=== PATIENT | female | born 1955 | race Caucasian/White ===

== ENCOUNTER 2018-01-07 20:29 | Emergency (ER) | payer OTHER ==
[~2018-01-07] VITALS: Ht 157.5 cm; Wt 77.6 kg
[~2018-01-07 20:29] MED LIST: ALDACTONE50 MG PO; ASPIRIN325; BACTRIM DS TAB1 EACH PO; CELEXA20 MG PO; FISH OIL 1,001000 M2 PO; FISHOIL; KLOR-CON 1010 MEQ; LEVOTHYROXINE0.05 MG PO; LIPITOR10 MG PO; LISINOPRIL5 MG PO; METFORMIN HCL500 MG PO; NORCO 5-325 TA1 EAC1 PO; PRILOSEC OTC20 MG PO; VICODIN; VICODIN 5-3001 EACH PO; VITAMIN D3400 UNIT PO; ZANTAC 150MG T150 MG
[2018-01-07] MEDS ORDERED: LOPRESSOR50 (20:38)
[2018-01-07 20:39] VITALS: BP 146/62
== END 2018-01-07 21:01 | disposition home or self-care (01) ==
LOC: M.ERS 20:29
DX: S40.861A Insect bite (nonvenomous) of right upper arm, initial encounter (principal); E03.9 Hypothyroidism, unspecified; E78.00 Pure hypercholesterolemia, unspecified; K21.9 Gastro-esophageal reflux disease without esophagitis; I10 Essential (primary) hypertension; E11.9 Type 2 diabetes mellitus without complications; Z88.0 Allergy status to penicillin; Z88.7 Allergy status to serum and vaccine; Z88.8 Allergy status to other drugs, medicaments and biological substances; W57.XXXA Bitten or stung by nonvenomous insect and other nonvenomous arthropods, initial encounter; Y93.89 Activity, other specified; Y92.89 Other specified places as the place of occurrence of the external cause; Y99.8 Other external cause status

== ENCOUNTER 2018-09-24 15:16 | Inpatient (IN) | payer MEDICARE, OTHER ==
[~2018-09-24] VITALS: Ht 157.5 cm; Wt 79.8 kg
[~2018-09-24 15:16] MED LIST changes: -LEVOTHYROXINE0.05 MG PO; +LIPITOR 20 MG T20 M1 PO; -LIPITOR10 MG PO; +LOPRESSOR50 PO; +SYNTHROID100 MC1 PO; -ZANTAC 150MG T150 MG; +ZANTAC 150MG T150 MG PO
[2018-09-24 15:17] VITALS: BP 141/64
[2018-09-24 15:47] LABS: ABSOLUTE EOSINOPHILS 0.1 thou/uL (0.0-0.7); ABSOLUTE LYMPHOCYTES 1.7 thou/uL (0.8-5.3); ABSOLUTE MONOCYTES 0.4 thou/uL (0.0-1.2); ABSOLUTE NEUTROPHILS 3.8 thou/uL (1.6-8.1); BASOPHILS 0.5 %; EOSINOPHILS 1.9 %; HEMATOCRIT 33.5 % (37.0-47.0); HEMOGLOBIN 11.3 gm/dL (12.0-15.0); LYMPHOCYTES 27.9 %; MCHC 33.7 g/dL (28.0-37.0); MCV 77.1 fL (80.0-100.0); MONOCYTES 7.1 %; MPV 7.3 fl. (7.2-11.1); NUCLEATED RBCS 0 /100WBC; PLATELET COUNT* 271 thou/uL (150-400); POLYS 62.6 %; RBC 4.34 mil/uL (4.20-5.00); RDW-CV 14.5 % (10.5-14.5); WBC 6.1 thou/uL (4.0-11.0)
[2018-09-24 15:56] LABS: PROTIME 10.3 Seconds (9.20-11.50)
[2018-09-24 16:09] LABS: ANION GAP 6 mmol/L (7-16); BUN 14 mg/dL (7-18); CALCIUM 8.6 mg/dL (8.5-10.1); CHLORIDE 98 mmol/L (98-107); CO2 31 mmol/L (21-32); CREATININE 1.1 mg/dL (0.6-1.3); GLUCOSE 219 mg/dL (70-99); POTASSIUM 3.2 mmol/L (3.5-5.1); SODIUM 135 mmol/L (136-145); TROPONIN-I LEVEL <0.06 ng/mL (<0.06)
--- NOTE | 2018-09-24 16:18 | NUR ---
TO RE-EVALUATE
[2018-09-24 16:20] LABS: ALBUMIN 2.9 g/dL (3.4-5.0); ALKALINE PHOSPHATASE 73 U/L (46-116); LIPASE 209 U/L (73-393); NT-PRO BRAIN NAT PEPTIDE 78 pg/mL (<300); SGOT 17 U/L (15-37); SGPT 14 U/L (30-65); TOTAL BILIRUBIN 0.1 mg/dL (<0.1-1.0); TOTAL PROTEIN 6.6 g/dL (6.4-8.2)
[2018-09-24 18:04] VITALS: BP 113/46
[2018-09-24 18:25] VITALS: BP 123/61
--- NOTE | 2018-09-24 18:45 | NUR ---
PATIENT ARRIVED TO UNIT AT APPROX 1830. ALERT AND ORIENTED X4. VSS ON ROOM AIR. NO COMPLAINTS OF PAIN, SOA, OR NASUEA. PATIENTS DAUGHTER IS WITH HER AND CAUSING PATIENT SOME ANXIETY, PATIENT CRYIINIG AFTER SPEAKING TO HER DAUGHTER. PATIENT EDUCATED ON RISKS FOR FALLS AND PREVENTIONS AND COPMMUNICATES UNDERSTANDING OF NEED TO CALL STAFF BEFORE GETTING UP. FALL AGREEMENT SIGNED. FALL PRECAUTIONS PLACED. CALL LIGHT WITHIN REACH. NURSING WILL CONTINUE TO MONITOR.
[2018-09-24 20:00] VITALS: BP 132/62
[2018-09-25] VITALS (18 sets, daily range): BP systolic 104–142; BP diastolic 51–90
[2018-09-25 04:50] LABS: POTASSIUM 3.6 mmol/L (3.5-5.1)
[2018-09-25 04:55] LABS: ABSOLUTE EOSINOPHILS 0.2 thou/uL (0.0-0.7); ABSOLUTE LYMPHOCYTES 1.8 thou/uL (0.8-5.3); ABSOLUTE MONOCYTES 0.4 thou/uL (0.0-1.2); BASOPHILS 0.4 %; EOSINOPHILS 3.7 %; HEMATOCRIT 36.9 % (37.0-47.0); HEMOGLOBIN 12.2 gm/dL (12.0-15.0); LYMPHOCYTES 33.6 %; MCH 25.5 pg (26.0-34.0); MCHC 33.1 g/dL (28.0-37.0); MCV 76.9 fL (80.0-100.0); MONOCYTES 7.3 %; MPV 7.6 fl. (7.2-11.1); NUCLEATED RBCS 0 /100WBC; PLATELET COUNT* 281 thou/uL (150-400); RDW-CV 14.6 % (10.5-14.5); WBC 5.4 thou/uL (4.0-11.0)
--- NOTE | 2018-09-25 05:56 | NUR ---
ASSUMED PT CARE AT APPROX 1920. PT AWAKE AND ALERT X4. APPEARED ANXIOUS AND IS TEARFUL. PT WAS ABLE TO CALM DOWN AND SLEEP WITH XANAX GIVEN PER MAR. ASSESSMENT DONE AND CHARTED. CALL LIGHT WITHIN REACH. HOURLY ROUNDING DONE FOR PT SAFETY.
[2018-09-25 07:50] LABS: CHOLESTEROL 157 mg/dL (<200); HDL CHOLESTEROL 37 mg/dL (>40); LDL CHOLESTEROL 100 mg/dL (<100); TC:HDL 4.2 Ratio (Not establshd); TRIGLYCERIDE 104 mg/dL (<150); VLDL 21 mg/dL (<40)
[2018-09-25 07:51] LABS: SERUM ASSESSMENT Clear
--- NOTE | 2018-09-25 08:30 | NUR ---
RECEIVED REPORT FROM ROLLOUT MANAGER NURSE AND ASSUMED CARE OF PT AT 0745.PT IS A/OX4 .VSS.TRACING SR ON MONITOR.NO COMPLAINTS OF PAIN AT TIME OF ASSESSMENT .NO SKIN ISSUE.PT IS NPO STATUS FOR CARDIOLOGY.SAFETY PRECAUTIONS AND CALL LIGHT IN PLACE.IV PATENT AT R FOREARM WITH IV FLUIDS INFUSING.WILL CONTINUE TO MONITOR
--- NOTE | 2018-09-25 11:37 | NUR ---
MET WITH PT TO DISCUSS HOME SITUATION/DC PLANNING. PT LIVE WITH SPOUSE, DTR, HER BF AND 2 GRANDSONS WELL CATS. PT STATES 'TOO MANY PEOPLE' PT ADMITTED WITH CHEST PAIN, TO HAVE TESTS TODAY. PT DENIES ANY DC NEEDS. PLANS TO RETURN HOME AT DC. PT FOLLOWS WITH DR DUC WHITE FOR PCP. WILL FOLLOW
--- NOTE | 2018-09-25 15:55 | EKG ---
[place] [address] ELECTROCARDIOGRAM REPORT Name: BALWINDER JO Room: [place] [address] ADM IN .R.#: [id number] Admission: 09/24/18 Attend Phys: Ken Quiroga MD Discharge: Date of : 51 Report #: [id number] THIS REPORT FOR: //name// [facility] ED Test Date: 2018-09-24 Test Time: 15:19:20 Pat Name: BALWINDER JO Department: Room: [facility] Gender: F College [employer] Coordinator: KIM : 1955 Requested By: Humberto Hayward Order Number: [id number] MD: Dmitry Larry Measurements Intervals [place] Rate: 83 P: 54 MS: 148 QRS: 36 QRSD: 108 T: 61 QT: 412 QTc: 485 Interpretive Statements Sinus arrhythmia Ventricular premature complex RSR' in V1 or V2, right VCD Compared to ECG 04/21/2016 16:03:19 Ventricular premature complex(es) now present Electronically Signed On 09-25-2018 15:55:35 PHYSICAL GEOGRAPHER by Dmitry Larry [email or web address] <ELECTRONICALLY SIGNED> By: Dmitry Larry MD, [facility] 09/25/18 1555 1519 1519 Dmitry Larry MD, [facility] /EPI
--- NOTE | 2018-09-25 16:11 | EKG ---
[place] [address] ELECTROCARDIOGRAM REPORT Name: BALWINDER JO Room: [place] [address] ADM IN M.R.#: [id number] Admission: 09/24/18 Attend Phys: Ken Quiroga MD Discharge: Date of : 51 Report #: [id number] THIS REPORT FOR: //name// [facility] Test Date: 2018-09-25 Test Time: 12:15:11 Pat Name: BALWINDER JO Department: Room: [place] [address] Gender: F Chaser Helper: MERRY : 1955 Requested By: Dmitry Larry Order Number: [id number] Maik MD: Dmitry Larry Measurements Intervals [place] Rate: 52 P: 54 AR: 186 QRS: 20 QRSD: 111 T: 54 QT: 527 QTc: 491 Interpretive Statements Sinus rhythm Borderline prolonged QT interval Compared to ECG 04/21/2016 16:03:19 Incomplete right bundle-branch block no longer present Electronically Signed On 09-25-2018 16:11:31 THORACIC SURGEON by Dmitry Larry [email or web address] <ELECTRONICALLY SIGNED> By: Dmitry Larry MD, [facility] 09/25/18 9591 1215 1215 Dmitry Larry MD, [facility] /EPI
--- NOTE | 2018-09-25 16:30 | CARD ---
[address] [address] CARDIAC CATH REPORT Name: SANDROBALWINDER Denice Room: [place] [address] ADM IN .R.#: [id number] Admission: 09/24/18 Attend Phys: Ken Quiroga MD Discharge: Date of : 51 Report #: [id number] THIS REPORT FOR: //name// APPROVED REPORT Study performed: 09/25/2018 10:05:05 Patient Details Patient Status: In-Patient Room #: Event Personnel Dr. Larry Procedures Performed Left heart catheterization left ventriculography selective coronary artery and percutaneous coronary intervention to the obtuse marginal branch of the circumflex Indication Unstable angina Risk Factors Hypercholesterolemia, Diabetes Previous Procedures/Diagnoses Previous PCI Admission/Lab Medications/Medications given during procedure Aspirin, Platelet Aff. Inhib., Angiomax bolus and infusion Procedure Narrative The patient was brought electively to the Cardiac Catheterization Laboratory and was prepped and draped in a sterile manner. The right femoral was infiltrated with 2% Lidocaine subcutaneous anesthesia. A 6 [place] sheath was inserted into the right femoral artery. Coronary angiography was performed using coronary diagnostic catheters. The right coronary system was accessed and visualized with a Diagnostic catheter. The left coronary system was accessed and visualized with a Diagnostic catheter. The left ventricle was accessed and visualized with a Diagnostic catheter. Left ventricular/Aortic Valve gradient assessed via catheter pullback. Left ventriculogram was performed in ALFARO projection. Pre-demployment femoral angiogram was performed . Closure device was deployed with a 6 Fr Angioseal. [place] [address] CARDIAC CATH REPORT Name: BALWINDER JO Room: [address] IN [facility].#: [id number] Admission: 09/24/18 Attend Phys: Ken Quiroga MD Discharge: Date of : 51 Report #: [id number] Coronary Angiography The patient's coronary anatomy is right dominant. Diagnostic Cath Left Main 0% narrowing LAD 30% mid LAD narrowing Circumflex 80% stenosis of the first marginal branch of the circumflex after a previously deployed stent with 30% mid circumflex narrowing Right Coronary 30 Percent mid vessel narrowing Left Ventriculography The left ventricle is normal in size with contractility. The left ventricular ejection fraction is estimated to be 60%. Left ventricular wall motion abnormalities are present. There is no mitral insufficiency. Mid inferior hypokinesis is noted Hemodynamics The aortic pressure is 120/70 mmHg with a mean of 82 mmHg. The left ventricular end diastolic pressure is 8 mmHg. There was no gradient across the aortic valve upon pullback. PCI Technique Lesion Anticoagulation was achieved with Angiomax. Percutaneous coronary intervention was performed on the first marginal branch of the circumflex. The lesion stenosis prior to intervention was 80% with JAMEEL 3 flow. STENT DEPLOYMENT A drug-eluting stent 2.0 x 8 Haris was inserted and inflated up to 12atm for 10seconds. POST STENT DEPLOYMENT BALLOON DILATION A Balloon catheter 2.0 x 8 NC trek was inserted and inflated up to 18atm for 10seconds. Final angiography reveals 0 % stenosis with JAMEEL 3 flow. Conclusion #1 significant coronary artery disease characterized by the following: A 30% mid LAD narrowing B 30% mid circumflex narrowing with 80% [place] [address] CARDIAC CATH REPORT Name: TANIKAMICHELLEBALWINDER M Room: [address] IN [facility]#: [id number] Admission: 09/24/18 Attend Phys: Ken Quiroga MD Discharge: Date of : 51 Report #: [id number] marginal branch of the circumflex after a previously deployed stent C dominant right coronary artery with 30% mid vessel narrowing #2 normal global left ventricular systolic function, estimate ejection fraction being 60% with mid inferior hypokinesis #3 normal left-sided hemodynamic study #4 successful percutaneous coronary intervention with deployment of a drug-eluting stent at the site of 80% first marginal stenosis with 0% residual narrowing and JAMEEL-3 flow to the distal vessel Recommendations Cardiac Risk Reduction Program Aggressive Medical Therapy Medications Administered Aspirin (any) Prasugrel Diagnostic Cath Approved by: Dmitry Larry MD Date/Time: 09/25/2018 16:29:01 <ELECTRONICALLY SIGNED> By: Dmitry Larry MD, [facility] [id number] 29Dmitry Larry MD, [facility] /INF
[2018-09-25 18:14] LABS: HEMATOCRIT 35.7 % (37.0-47.0); HEMOGLOBIN 11.8 gm/dL (12.0-15.0); MCH 25.5 pg (26.0-34.0); MCHC 33.1 g/dL (28.0-37.0); MCV 76.9 fL (80.0-100.0); MPV 7.5 fl. (7.2-11.1); RBC 4.64 mil/uL (4.20-5.00); RDW-CV 14.3 % (10.5-14.5); WBC 6.9 thou/uL (4.0-11.0)
--- NOTE | 2018-09-25 19:09 | NUR ---
VSS,TRACING SB TO SR ON THE MONITOR.PT IS A/OX4.RECEIVED PT FROM MINE TECHNICIAN AT 1200.POST CATH VITALS MONITORED AND RECORDED.RIGHT GROIN CATH SITE HAD SOME OOZING. CATH DRESSING CHANGED X2. PRESSURE HELD FOR 15 MINUTES.NO HEMATOMA OR FURTHER BLEEDING.PT IS ON CARB CONTROL DIET.METFORMIN HELD DUE TO CATH CONTRAST.NEW IV PLACED TO L FOREARM.MAG REPLACED. PT IS UP STAND BY ASSIST.CALL LIGHT AND FALL PRECAUTIONS IN PLACE.WILL CONTINUE TO MONITOR.
--- NOTE | 2018-09-25 19:27 | NUR ---
THIS NURSE REVIEWED ORIENTEE NURSE KONG'S NOTES AND CHARTING AND AGREES.
--- NOTE | 2018-09-25 23:16 | NUR ---
INITAL ASSEEMENT COMPLETED AT 1930. PT'S RIGHT GROIN SITE SOFT, NO BLEEDING OR HEMETOMA NOTED. SMALL AREA OF BRUISING AT SITE. DRWSSING CLEAN DRY AND INTACT. INSTRUCTED PT TO SPLINT RIGHT GROIN SITE BEFORE COUGHING OR BEARING DOWN FOR BOWEL MOVEMENT. PAGED DR BLAIR FOR PTS HOME MEDICATION. RECIEVED ORDER FOR TRAZEDONE 100 MG PO AT HS.CALL LIGHT IN REACH. PT USING APPROPRIATELY.
[2018-09-26] VITALS: BP 131/57
[2018-09-26 04:00] VITALS: BP 116/49
[2018-09-26 04:31] LABS: ABSOLUTE EOSINOPHILS 0.2 thou/uL (0.0-0.7); ABSOLUTE LYMPHOCYTES 1.6 thou/uL (0.8-5.3); ABSOLUTE MONOCYTES 0.4 thou/uL (0.0-1.2); ABSOLUTE NEUTROPHILS 4.8 thou/uL (1.6-8.1); BASOPHILS 0.3 %; HEMATOCRIT 34.3 % (37.0-47.0); HEMOGLOBIN 11.4 gm/dL (12.0-15.0); LYMPHOCYTES 23.4 %; MCH 25.6 pg (26.0-34.0); MCHC 33.4 g/dL (28.0-37.0); MCV 76.7 fL (80.0-100.0); MONOCYTES 5.7 %; MPV 7.6 fl. (7.2-11.1); NUCLEATED RBCS 0 /100WBC; PLATELET COUNT* 280 thou/uL (150-400); POLYS 67.6 %; RBC 4.47 mil/uL (4.20-5.00); RDW-CV 14.3 % (10.5-14.5)
[2018-09-26 04:46] LABS: ALBUMIN 2.6 g/dL (3.4-5.0); CALCIUM 7.9 mg/dL (8.5-10.1); POTASSIUM 3.9 mmol/L (3.5-5.1); TOTAL BILIRUBIN 0.2 mg/dL (<0.1-1.0); TOTAL PROTEIN 6.1 g/dL (6.4-8.2); TROPONIN-I LEVEL 0.48 ng/mL (<0.06)
[2018-09-26 08:00] VITALS: BP 135/56
--- NOTE | 2018-09-26 10:48 | NUR ---
5345 ASSUMED CARE OF PATIENT. PLEASE SEE DOCUMENTED ASSESSMENT. SEE GROIN SITE CHARTING. HEADACHE IS RESOLVED BUT PT C/O COUGH AND MOT FEELING GOOD. DOES NOT WANT TO EAT. AFFECT IS FLAT
[2018-09-26 11:37] VITALS: BP 138/54
--- NOTE | 2018-09-26 12:59 | EKG ---
[place] [address] ELECTROCARDIOGRAM REPORT Name: BALWINDER JO Room: [place] [address] ADM IN M.R.#: [id number] Admission: 09/24/18 Attend Phys: Ken Quiroga MD Discharge: Date of : 51 Report #: [id number] THIS REPORT FOR: //name// [facility] Test Date: 2018-09-26 Test Time: 08:22:08 Pat Name: BALWINDER JO Department: Room: [place] [address] Gender: F Bar Staff: : 1955 Requested By: Dmitry Larry Order Number: [id number] Maik MD: Dmitry Larry Measurements Intervals [place] Rate: 61 P: 58 ND: 178 QRS: 46 QRSD: 106 T: 62 QT: 474 QTc: 478 Interpretive Statements Sinus rhythm RSR' in V1 or V2, right VCD Electronically Signed On 09-26-2018 12:59:43 CONTACT CENTER MANAGER by Dmitry Larry [email or web address] <ELECTRONICALLY SIGNED> By: Dmitry Larry MD, [facility] 09/26/18 1259 0822 1 Dmitry Larry MD, FACC /EPI
--- NOTE | 2018-09-26 13:16 | NUR ---
CARDIAC REHAB HERE TO WALK PATIENT
[2018-09-26 13:56] VITALS: BP 126/55
[2018-09-26] MEDS ORDERED: ASPIR 8181 MG PO (14:46)
[2018-09-26] MEDS ORDERED: EFFIENT10 MG PO (14:49)
[2018-09-26] MEDS ORDERED: NITROSTAT0.4 M1 SUBLING (14:54)
[2018-09-26] MEDS ORDERED: LOPRESSOR25 PO (15:00)
[2018-09-26] MEDS ORDERED: CELEXA40 MG PO (15:01)
[2018-09-26] MEDS ORDERED: ADVAIR HFA 230M12 GM INH (15:02)
[2018-09-26] MEDS ORDERED: PREDNISONE 20 M20 MG PO (15:18)
[2018-09-26] MEDS ORDERED: LEVAQUIN 750 M750 MG PO (15:18)
[2018-09-26] MEDS ORDERED: TRAZODONE HCL100 MG PO (15:28)
[2018-09-26] MEDS ORDERED: AZITHROMYCIN 2250 MG PO (15:28)
--- NOTE | 2018-09-26 15:44 | NUR ---
DISCHARGE EDUCATION DONE. IV AND TELE PACK REMOVED. PATIENT VOICES UNDERSTANDING OF INSTRUCTIONS
[2018-09-26 16:00] VITALS: BP 126/79
--- NOTE | 2018-09-26 16:16 | NUR ---
PATIENT DISCHARGED HOME
== END 2018-09-26 16:15 | disposition home or self-care (01) | DRG 247 ==
LOC: M.ERS 15:16 → M.TBA-ER 16:21 → M.2W 16:21
PROVIDERS: Emergency Medicine; Family Medicine; Internal Medicine; Registered Nurse; ADMIT Internal Medicine
PROC: 4A023N7 Measurement of Cardiac Sampling and Pressure, Left Heart, Percutaneous Approach (ICD-10-PCS; principal; 2018-09-25)
PROC: B2151ZZ Fluoroscopy of Left Heart using Low Osmolar Contrast (ICD-10-PCS; principal; 2018-09-25)
PROC: 027034Z Dilation of Coronary Artery, One Artery with Drug-eluting Intraluminal Device, Percutaneous Approach (ICD-10-PCS; principal; 2018-09-25)
PROC: B2111ZZ Fluoroscopy of Multiple Coronary Arteries using Low Osmolar Contrast (ICD-10-PCS; principal; 2018-09-25)
PROC: B41J1ZZ Fluoroscopy of Other Lower Arteries using Low Osmolar Contrast (ICD-10-PCS; principal; 2018-09-25)
DX: I25.119 Atherosclerotic heart disease of native coronary artery with unspecified angina pectoris (principal); J44.1 Chronic obstructive pulmonary disease with (acute) exacerbation; E44.1 Mild protein-calorie malnutrition; E03.9 Hypothyroidism, unspecified; E78.00 Pure hypercholesterolemia, unspecified; K21.9 Gastro-esophageal reflux disease without esophagitis; I10 Essential (primary) hypertension; E11.9 Type 2 diabetes mellitus without complications; F41.9 Anxiety disorder, unspecified; E87.6 Hypokalemia; E78.5 Hyperlipidemia, unspecified; F32.9 Major depressive disorder, single episode, unspecified; Z79.82 Long term (current) use of aspirin; Z95.5 Presence of coronary angioplasty implant and graft; Z88.0 Allergy status to penicillin; Z88.7 Allergy status to serum and vaccine; Z88.8 Allergy status to other drugs, medicaments and biological substances; Z79.899 Other long term (current) drug therapy; Z68.32 Body mass index [BMI] 32.0-32.9, adult

== ENCOUNTER 2018-09-27 11:36 | Emergency (ER) | payer MEDICARE, OTHER ==
[~2018-09-27] VITALS: Ht 157.5 cm; Wt 90.7 kg
[~2018-09-27 11:36] MED LIST changes: +ADVAIR HFA 230M12 GM INH; +ASPIR 8181 MG PO; +AZITHROMYCIN 2250 MG PO; +CELEXA40 MG PO; +EFFIENT10 MG PO; +LEVAQUIN 750 M750 MG PO; +LEVOTHYROXINE0.05 MG PO; +LOPRESSOR25 PO; +NITROSTAT0.4 M1 SUBLING; +PREDNISONE 20 M20 MG PO; -SYNTHROID100 MC1 PO; +TRAZODONE HCL100 MG PO
[2018-09-27 12:47] VITALS: BP 185/93
== END 2018-09-27 12:47 | disposition home or self-care (01) ==
LOC: M.ERS 11:36
DX: I97.610 Postprocedural hemorrhage of a circulatory system organ or structure following a cardiac catheterization (principal); E03.9 Hypothyroidism, unspecified; E78.00 Pure hypercholesterolemia, unspecified; K21.9 Gastro-esophageal reflux disease without esophagitis; I10 Essential (primary) hypertension; E11.9 Type 2 diabetes mellitus without complications; Z98.890 Other specified postprocedural states; Z95.5 Presence of coronary angioplasty implant and graft; Z88.1 Allergy status to other antibiotic agents; Z88.0 Allergy status to penicillin; Z88.7 Allergy status to serum and vaccine; Z88.8 Allergy status to other drugs, medicaments and biological substances; Y84.8 Other medical procedures as the cause of abnormal reaction of the patient, or of later complication, without mention of misadventure at the time of the procedure; Y82.8 Other medical devices associated with adverse incidents

== ENCOUNTER 2018-10-14 23:19 | Observation (INO) | payer MEDICARE, OTHER ==
[~2018-10-14] VITALS: Ht 157.5 cm; Wt 78.0 kg
[~2018-10-14 23:19] MED LIST changes: -LEVOTHYROXINE0.05 MG PO; +SYNTHROID100 MC1 PO
[2018-10-14 23:31] VITALS: BP 165/54
[2018-10-14] MEDS ORDERED: MOBIC15 MG (23:42)
[2018-10-14 23:56] LABS: ABSOLUTE EOSINOPHILS 0.3 thou/uL (0.0-0.7); ABSOLUTE LYMPHOCYTES 1.7 thou/uL (0.8-5.3); ABSOLUTE MONOCYTES 0.4 thou/uL (0.0-1.2); ABSOLUTE NEUTROPHILS 2.6 thou/uL (1.6-8.1); BASOPHILS 0.7 %; EOSINOPHILS 5.5 %; HEMATOCRIT 33.4 % (37.0-47.0); HEMOGLOBIN 11.3 gm/dL (12.0-15.0); LYMPHOCYTES 33.7 %; MCH 26.6 pg (26.0-34.0); MCHC 33.7 g/dL (28.0-37.0); MCV 78.9 fL (80.0-100.0); MONOCYTES 8.8 %; MPV 7.8 fl. (7.2-11.1); NUCLEATED RBCS 0 /100WBC; PLATELET COUNT* 226 thou/uL (150-400); POLYS 51.3 %; RBC 4.24 mil/uL (4.20-5.00); RDW-CV 16.2 % (10.5-14.5); WBC 5.1 thou/uL (4.0-11.0)
[2018-10-15] VITALS (7 sets, daily range): BP systolic 86–146; BP diastolic 39–73
[2018-10-15 00:12] LABS: ANION GAP 10 mmol/L (7-16); BUN 16 mg/dL (7-18); CALCIUM 8.9 mg/dL (8.5-10.1); CHLORIDE 102 mmol/L (98-107); CO2 30 mmol/L (21-32); CREATININE 1.1 mg/dL (0.6-1.3); GLUCOSE 187 mg/dL (70-99); POTASSIUM 3.4 mmol/L (3.5-5.1); SODIUM 142 mmol/L (136-145); TROPONIN-I LEVEL <0.06 ng/mL (<0.06)
[2018-10-15 00:15] LABS: ALBUMIN 3.3 g/dL (3.4-5.0); ALKALINE PHOSPHATASE 68 U/L (46-116); CK-MB MASS 1.1 ng/mL (<0.5-3.6); LIPASE 249 U/L (73-393); MAGNESIUM 1.2 mg/dL (1.8-2.4); NT-PRO BRAIN NAT PEPTIDE 227 pg/mL (<300); SGOT 16 U/L (15-37); SGPT 18 U/L (30-65); TOTAL BILIRUBIN 0.3 mg/dL (<0.1-1.0); TOTAL PROTEIN 6.3 g/dL (6.4-8.2)
[2018-10-15 00:19] LABS: URINE BILIRUBIN NEGATIVE (Negative); URINE BLOOD NEGATIVE (Negative); URINE CLARITY CLEAR; URINE COLOR YELLOW; URINE GLUCOSE-RANDOM NEGATIVE (Negative); URINE KETONES NEGATIVE (Negative); URINE LEUKOCYTES-REFLEX NEGATIVE (Negative); URINE NITRITE-REFLEX NEGATIVE (Negative); URINE PROTEIN NEGATIVE (Negative); URINE SPECIFIC GRAVITY <= 1.005 (1.005-1.030); URINE UROBILINOGEN 0.2 E.U./dl (0.2-1.0)
[2018-10-15 00:21] LABS: APTT 25.9 Seconds (25.0-31.3); PROTIME 9.8 Seconds (9.20-11.50)
[2018-10-15 16:34] LABS: CALCIUM 8.4 mg/dL (8.5-10.1); CREATININE 1.3 mg/dL (0.6-1.3); MAGNESIUM 1.4 mg/dL (1.8-2.4); POTASSIUM 3.7 mmol/L (3.5-5.1)
--- NOTE | 2018-10-15 17:50 | EKG ---
[place] [address] ELECTROCARDIOGRAM REPORT Name: BALWINDER JO Room: [address] ADM IN M.R.#: [id number] Admission: 10/15/18 Attend Phys: Adam Hitchcock MD Discharge: Date of : 51 Report #: [id number] THIS REPORT FOR: //name// [facility] ED Test Date: 2018-10-14 Test Time: 23:55:52 Pat Name: BALWINDER JO Department: Room: [facility] Gender: F Director Digital Analytics: : 1955 Requested By: Simon Toribio Order Number: [id number] MD: Andrea Milian Measurements Intervals [place] Rate: 57 P: 62 TN: 174 QRS: 25 QRSD: 108 T: 66 QT: 502 QTc: 489 Interpretive Statements Sinus rhythm RSR' in V1 or V2, right VCD or RVH Borderline prolonged QT interval Compared to ECG 09/26/2018 08:22:08 no change Electronically Signed On 10-15-2018 17:49:44 CDT by Andrea Milian [email or web address] <ELECTRONICALLY SIGNED> By: Andrea Milian MD, FACC 10/15/18 1749 2355 2355 Andrea Milian MD, FAC /EPI
[2018-10-16] VITALS (7 sets, daily range): BP systolic 87–149; BP diastolic 40–70
[2018-10-16 04:37] LABS: ABSOLUTE BASOPHILS 0.1 thou/uL (0.0-0.2); ABSOLUTE EOSINOPHILS 0.2 thou/uL (0.0-0.7); ABSOLUTE LYMPHOCYTES 1.6 thou/uL (0.8-5.3); ABSOLUTE MONOCYTES 0.4 thou/uL (0.0-1.2); BASOPHILS 1.2 %; EOSINOPHILS 5.8 %; HEMATOCRIT 32.8 % (37.0-47.0); HEMOGLOBIN 11.1 gm/dL (12.0-15.0); LYMPHOCYTES 37.3 %; MCH 26.8 pg (26.0-34.0); MCHC 33.8 g/dL (28.0-37.0); MCV 79.4 fL (80.0-100.0); MONOCYTES 9.6 %; MPV 8.1 fl. (7.2-11.1); NUCLEATED RBCS 0 /100WBC; PLATELET COUNT* 183 thou/uL (150-400); POLYS 46.1 %; RBC 4.13 mil/uL (4.20-5.00); RDW-CV 16.1 % (10.5-14.5); WBC 4.3 thou/uL (4.0-11.0)
[2018-10-16 04:48] LABS: CALCIUM 7.9 mg/dL (8.5-10.1); CREATININE 1.2 mg/dL (0.6-1.3); POTASSIUM 4.5 mmol/L (3.5-5.1)
--- NOTE | 2018-10-17 07:49 | 2DMMODE ---
[place] [address] 2 D/M-MODE ECHOCARDIOGRAM Name: BALWINDER JO Room: [address] IN [facility]#: [id number] Admission: 10/15/18 Attend Phys: Adam Hitchcock MD Discharge: 10/16/18 Date of : 51 Date of Service: 10/17/18 0748 Report #: [id number] THIS REPORT FOR: //name// APPROVED REPORT Study performed: 10/16/2018 11:55:19 EXAM: Comprehensive 2D, Doppler, and color-flow Echocardiogram Patient Location: In-Patient Room #: [facility] Status: routine BSA: 1.79 HR: 54 bpm BP: 87/48 mmHg Rhythm: NSR Other Information Study Quality: Fair Indications Chest Pain 2D Dimensions IVSd: 9.10 (7-11mm) LVOT Diam: 18.83 (18-24mm) LVDd: 45.33 mm PWd: 9.56 (7-11mm) LVDs: 30.30 (25-40mm) Aortic Root: 28.54 mm Volumes Left Atrial Volume (Systole) LA ESV Index: 24.50 mL/m2 Aortic Valve AoV Peak Alec.: 1.53 m/s AO Peak Gr.: 9.41 mmHg LVOT Max P.71 mmHg AO Mean Gr.: 4.71 mmHg LVOT Mean P.98 mmHg LVOT Max V: 1.09 m/s AO V2 VTI: 32.74 cm LVOT Mean V: 0.63 m/s VALARIE (VTI): 2.18 cm2 LVOT V1 VTI: 25.63 cm Mitral Valve E/A Ratio: 1.27 MV Decel. Time: 236.20 ms MV E Max Alec.: 0.88 m/[place] [address] 2 D/M-MODE ECHOCARDIOGRAM Name: BALWINDER JO Room: [address]#: [id number] Admission: 10/15/18 Attend Phys: Adam Hitchcock MD Discharge: 10/16/18 Date of : 51 Date of Service: 10/17/18 0748 Report #: [id number] MV PHT: 68.50 ms MVA (PHT): 3.21 cm2 TDI E/Lateral E': 7.33 E/Medial E': 9.78 Medial E' Alec.: 0.09 m/s Lateral E' Alec.: 0.12 m/s Pulmonary Valve PV Peak Alec.: 0.82 m/s PV Peak Gr.: 2.68 mmHg Left Ventricle The left ventricle is normal size. There is normal LV segmental wall motion. There is normal left ventricular wall thickness. Left ventricular systolic function is normal. The left ventricular ejection fraction is within the normal range. LVEF is 55-60%. The left ventricular diastolic function is normal. Right Ventricle The right ventricle is normal size. The right ventricular systolic function is normal. Atria The left atrium size is normal. The right atrium size is normal. Aortic Valve The Aortic valve is sclerotic. No aortic regurgitation is present. There is no aortic valvular stenosis. Mitral Valve The mitral valve is normal in structure. Trace mitral regurgitation. No evidence of mitral valve stenosis. Tricuspid Valve The tricuspid valve is normal in structure. Trace tricuspid regurgitation. Unable to assess PA pressure. Pulmonic Valve The pulmonary valve is normal in structure. There is no pulmonic valvular regurgitation. Great Vessels The aortic root is normal in size. IVC is normal in size and collapses >50% [place] [address] 2 D/M-MODE ECHOCARDIOGRAM Name: BALWINDER JO Room: [address] IN [facility]#: [id number] Admission: 10/15/18 Attend Phys: Adam Hitchcock MD Discharge: 10/16/18 Date of : 51 Date of Service: 10/17/18 0748 Report #: [id number] Pericardium There is no pericardial effusion. <Conclusion> LVEF is 55-60%. The Aortic valve is sclerotic. <ELECTRONICALLY SIGNED> By: Andrea Milian MD, FAC 10/17/1848 Andrea Milian MD, [facility] /INF
--- NOTE | 2018-10-17 09:30 | CARDNUC ---
[place] [address] CARDIAC NUCLEAR IMAGING REPORT Name: BALWINDER JO Room: [address] IN [facility]#: [id number] Admission: 10/15/18 Attend Phys: Adam Hitchcock MD Discharge: 10/16/18 Date of : 51 Date of Service: 10/17/18 0929 Report #: [id number] THIS REPORT FOR: //name// APPROVED REPORT Imaging Protocol: Rest Tc-99m/Stress Tc-99m 1 day Study performed: 10/15/2018 18:02:00 Indication: Chest pain Patient Location: In-Patient Room #: 226 Stress Tech: Chloe Mae Stress Nurse: Lindy Burton RN Ht: 5 ft 2 in Wt: 172 lbs BSA: 1.79 m2 BMI: 31.45 Medical History Medical History: Angina, CAD s/p CO, CAD s/p stent, Hyperlipidemia, HTN, Former Smoker, Diabetes. Medications: Metformin, Lovenox, Lopressor, ASA 81 Mg, Atorvastatin, Effient, Hydralazine, NTG. Allergies: Cephalexin, Cephalosporins, Cortisone, Levofloxacin, Penicillins, Ranitidine, Tenanus toxoid, Tizanidine. Cardiac Risk Factors: Age, DM, HTN, Hyperlipidemia, Past Smoker. Previous Cardiac Procedures: Myocardial infarction, PCI. Pretest Chest Pain Characteristics: No chest pain Exercise History: Indeterminate Physical Disabilities: Knees, Back. Meds Held (24 hrs): Loparessor, NTG. Resting Data Rest SPECT myocardial perfusion imaging was performed in supine position 30 minutes following the intravenous injection of 10.4 mCi of Tc-99m Sestamibi. Time of rest injection: 11:40 The images were gated to evaluate regional wall motion and calculate left ventricular ejection fraction. Administration Route: IV Administration Site: Right Arm Pharmacologic Stress Pharmacologic stress test was performed by injecting Regadenoson 0.4 mg IV push over 10-15 seconds immediately [place] [address] CARDIAC NUCLEAR IMAGING REPORT Name: TANIKAMICHELLEBALWINDER Denice Room: [address]#: [id number] Admission: 10/15/18 Attend Phys: Adam Hitchcock MD Discharge: 10/16/18 Date of : 51 Date of Service: 10/17/18 0929 Report #: [id number] injection of 36.0 mCi of Tc-99m Sestamibi. Time of stress injection: 13:50 Administration Site: Right Arm Heart Rate at time of stress injection: 84 bpm. Gated Stress SPECT was performed 45 minutes after stress injection. The images were gated to evaluate regional wall motion and calculate left ventricular ejection fraction. Prone imaging was performed. Stress Test Details Stress Test: Pharmacologic stress testing performed using 0.4 mg of regadenoson per 5 mL given IV over 10 seconds. Reason for pharmacologic stress test: physical limitation, bad knees/back pain.. HR Max Heart Rate (APMHR): 155 bpm Resting HR: 58 bpm Target HR (85% APMHR): 131 bpm Max HR Achieved: 92 bpm % of APMHR: 59 Recovery HR: 81 bpm HR response to stress: Normal HR response to stress BP Resting BP: 120/61 mmHg Max BP: 133/71 mmHg Recovery BP: 131/67 mmHg BP response to stress: Normal blood pressure response to stress. ECG Resting ECG: Sinus Rhythm Stress ECG: Sinus Rhythm ST Change: none Arrhythmia: none Recovery ECG: Sinus Rhythm Clinical Reason for Termination: Completed protocol Stress Symptoms: Tightness in chest, Head foggy, Headache. Exercise duration: 0 min 0 sec Exercise capacity: 1.00 METs Nurse Comments 63 year old female inpatient presented with recent HX of CP. Patient reported pain in knees and back. Patient tolerated sitting Lexiscan. Recovery unremarkable with PO caffeine[place] [address] CARDIAC NUCLEAR IMAGING REPORT Name: BALWINDER JO Room: [address]#: [id number] Admission: 10/15/18 Attend Phys: Adam Hitchcock MD Discharge: 10/16/18 Date of : 51 Date of Service: 10/17/18 0929 Report #: [id number] wheelchair by staff to Nuclear Medicine for images. Patient stable with no complaints at that time. Stress ECG Conclusion negative Study Quality Study: Good Artifact: No artifact Study Data At rest, the left ventricular ejection fraction was 64%.. Post stress, the left ventricular ejection was 73%.. SSS: 0 SRS: 2 SDS: -2 Perfusion Review of rest data reveals normal perfusion, without perfusion defects.Imaging obtained following vasodilator stress demonstrate a similar, uniform uptake of tracer without defects. Prone imaging was normal. LVEDV is normal.No segental wall motion abnormality seen. Wall Motion normal all segments Nuclear Conclusion ECG Findings: negative for ischemia Clinical Findings: negative for ischemia Nuclear Findings: negative for ischemia Exercise Capacity: not assessed Left Ventricular Function: normal Risk Study: low Negative perfusion nuclear stress test for ischemia /infarct. <Conclusion> negative <ELECTRONICALLY SIGNED> By: Joby Santos MD, FACC 10/17/18928 8 8 Joby Santos MD, FACC /INF
--- NOTE | 2018-10-17 14:18 | CON ---
[address] [address] CONSULTATION Name: SANDROBALWINDER Denice Room: [address] Demar Lubin#: [id number] Admission: 10/15/18 Attend Phys: Adam Hitchcock MD Discharge: 10/16/18 Date of : 51 Report #: [id number] THIS REPORT FOR: //name// CC: Deena Hitchcock DATE OF SERVICE: 10/15/2018 HISTORY OF PRESENT ILLNESS: I was asked by Dr. Hitchcock to see this 63-year-old white female in cardiology consultation for evaluation and treatment of chest pain as well as right arm pain and neck pain. This lady has known coronary artery disease. She is status post a coronary stent in her circumflex in 2003. She had a recent coronary stent in the first marginal branch of the circumflex on 09/25/2018. At that time, she apparently had a non-STEMI. She began having right arm pain about 4 days ago and she came in finally last night when she had it associated with it some upper substernal chest pain that did radiate into her neck. The substernal chest pain was a little bit like her previous coronary pain, but not nearly as severe. The right arm pain is not like her coronary pain. It is sharp, stabbing, burning and radiates down her arm and occasionally up into the neck and is associated sometimes with moving her arm, but sometimes, it will happen even though she is just sitting. It does not necessarily happen if she exerts herself walking, but it can happen that way. Occasionally, she does not have pain when she walks. Occasionally, she has pain at rest, so it is not clearly exertional chest pain. She says the pain is fairly severe. Sometimes, it only lasts a few seconds. Sometimes, it lasts longer, but there is a constant numbness and discomfort in that right arm. This has been present for 4 days. Morphine makes it better and rest makes it better. It is really not worse with activity. Often, it is not better with rest even. Seems to be . Says she has some nausea. There is no shortness of breath. There is no diaphoresis and no relationship to food. Nitroglycerin does not help it. She does have chronic dyspnea on exertion, but not orthopnea, PND or edema. She has not had syncope or near syncope. Coronary risk factors include a history of smoking. She quit in 2001. She does have hypercholesterolemia and diabetes and high blood pressure. There is no family history of coronary heart disease. She has not had renal disease or peripheral vascular disease. She does have pain in her legs when she walks, but not clearly claudication. She never had a stroke or TIA. PAST MEDICAL HISTORY: As described above. Additionally, she has hypothyroidism and GERD. She also has asthma. PAST SURGICAL HISTORY: She has had a tubal ligation, a tonsillectomy and adenoidectomy and carpal tunnel surgery. ALLERGIES: PENICILLIN, CEPHALOSPORINS, CEPHALEXIN, TETANUS TOXOID, RANITIDINE, CORTISONE, TIZANIDINE AND LEVOFLOXACIN. [address] [place] [address] CONSULTATION Name: TANIKABASILIA MARTINEZBALWINDER Denice Room: [address] Demar Lubin#: [id number] Admission: 10/15/18 Attend Phys: Adam Hitchcock MD Discharge: 10/16/18 Date of : 51 Report #: [id number] HOME MEDICATIONS: Aspirin 81 mg daily, atorvastatin 20 mg daily, citalopram 40 mg daily, Advair HFA 2 puffs b.i.d., levothyroxine 0.5 mg daily, meloxicam 15 mg daily, metformin 500 mg b.i.d., metoprolol 25 mg b.i.d., p.r.n. nitroglycerin, omeprazole 40 mg daily, prasugrel 10 mg daily and trazodone 100 mg at bedtime. SOCIAL HISTORY: She is , does not smoke, drink or use illegal drugs. FAMILY HISTORY: There is no family history of sudden . There is no family history of coronary artery disease. REVIEW OF SYSTEMS: Positive for cough, green sputum production, chest discomfort, shortness of breath with exercise, diabetes, thyroid trouble, seasonal allergies, depression, anxiety and wearing dentures. Otherwise, review of systems is negative for some 40 different complaints in 14 different system categories including central nervous system, general, respiratory, cardiovascular, endocrine, gastrointestinal, genitourinary, hematologic, lymphatic, allergic, immunologic, psychiatric, musculoskeletal, skin, eyes, ears, nose, mouth, and throat. Please see review of system form for details and negatives in review of systems. PHYSICAL EXAMINATION: GENERAL: She presents as a well-developed, well-nourished, white female in no acute distress. VITAL SIGNS: Pulse was 50 and regular, blood pressure is 107/51, respirations are 20 and regular, temperature was 97.9. HEENT: Her head was atraumatic. Eyes clear. NECK: Supple. There is no jugular venous distention or hepatojugular reflux. Thyroid is not enlarged. There is no adenopathy. SKIN: Warm and dry. Mucous membranes are moist. LUNGS: Clear to auscultation and percussion. HEART: Revealed normal first and second heart sound. There is soft S4. There is no S3. There are no murmurs, rubs, thrills, heaves or gallops. PMI is nondisplaced. Rhythm is regular, rate is approximately 60. ABDOMEN: Soft, flat, nontender, no palpable masses and no organomegaly. EXTREMITIES: Reveal no cyanosis, clubbing or edema. NEUROLOGIC: The patient mentated normally, talked normally and moved all extremities normally. LABORATORY DATA: Her EKG shows mild sinus bradycardia with a heart rate of 57. There is an RSR prime in V1 and V2, possible incomplete right bundle branch block, otherwise is fairly unremarkable. Troponins are negative x 3. BNP was normal. Chest x-ray showed no acute cardiopulmonary disease. IMPRESSION: 1. Right arm pain that is likely musculoskeletal in some sense, [place] [address] CONSULTATION Name: BALWINDER JO Room: [address] Demar Lubin#: [id number] Admission: 10/15/18 Attend Phys: Adam Hitchcock MD Discharge: 10/16/18 Date of : 51 Report #: [id number] neurologic. 2. Chest pain and neck pain, which could have been cardiac. 3. Coronary artery disease. 4. Status post coronary stents x 2, one recently. 5. Hypothyroidism. 6. Asthma. 7. Epn-qsjortn-zlesfcfxx diabetes mellitus. 8. Chest pain. 9. Hyperlipidemia. 10. Essential hypertension. RECOMMENDATION: I think she should have a stress test and echo to be sure she does not have any underlying coronary artery disease and we will give her some Toradol to see if that helps her pain, I am a little suspicious she may be about to develop shingles. Thank you very much for asking me to see the patient. If there are any questions, please feel free to contact me. <ELECTRONICALLY SIGNED> By: Andrea Milian MD, FACC 10/17/18 1418 1454 06F. Rusty Sharp MD, FACC /nt
== END 2018-10-16 16:00 | disposition home or self-care (01) ==
LOC: M.ERS 23:19 → M.2W 10-15 00:34 → M.TBA-ER 10-15 00:34 → M.2W 10-15 01:18
PROVIDERS: Family Medicine; Internal Medicine; ADMIT Family Medicine
DX: I25.10 Atherosclerotic heart disease of native coronary artery without angina pectoris (principal); E11.9 Type 2 diabetes mellitus without complications; I10 Essential (primary) hypertension; E03.9 Hypothyroidism, unspecified; E78.00 Pure hypercholesterolemia, unspecified; K21.9 Gastro-esophageal reflux disease without esophagitis; Z88.0 Allergy status to penicillin; Z88.8 Allergy status to other drugs, medicaments and biological substances; Z90.89 Acquired absence of other organs; Z98.51 Tubal ligation status

== ENCOUNTER 2018-11-03 08:49 | Emergency (ER) | payer MEDICARE, OTHER ==
[~2018-11-03] VITALS: Ht 160 cm; Wt 74.4 kg
[~2018-11-03 08:49] MED LIST changes: +MOBIC15 MG
[2018-11-03] MEDS ORDERED: NORCO 5-325 TA1 EACH PO (09:09)
[2018-11-03] MEDS ORDERED: PREDNISONE 20 M20 M1 PO (09:09)
[2018-11-03 09:16] VITALS: BP 154/59
== END 2018-11-03 09:17 | disposition home or self-care (01) ==
LOC: M.ERS 08:49
DX: M25.511 Pain in right shoulder (principal); E03.9 Hypothyroidism, unspecified; E78.00 Pure hypercholesterolemia, unspecified; K21.9 Gastro-esophageal reflux disease without esophagitis; I10 Essential (primary) hypertension; E11.9 Type 2 diabetes mellitus without complications; Z88.1 Allergy status to other antibiotic agents; Z88.0 Allergy status to penicillin; Z88.7 Allergy status to serum and vaccine; Z88.8 Allergy status to other drugs, medicaments and biological substances; Z98.890 Other specified postprocedural states

== ENCOUNTER 2019-02-06 21:42 | Observation (INO) | payer MEDICARE, OTHER ==
[~2019-02-06] VITALS: Ht 154.9 cm; Wt 69.4 kg
[~2019-02-06 21:42] MED LIST changes: +NORCO 5-325 TA1 EACH PO; +PREDNISONE 20 M20 M1 PO; +VITAMIN D31000 UNI2 PO; -VITAMIN D3400 UNIT PO
[2019-02-06 21:43] VITALS: BP 117/53
[2019-02-06] MEDS ORDERED: SYNTHROID112 MC1 PO (21:50)
[2019-02-06] MEDS ORDERED: CELEXA20 MG PO (21:50)
[2019-02-06] MEDS ORDERED: TRULICITY0.75 MG/0. SUBQ (21:54)
[2019-02-06 22:30] LABS: ABSOLUTE EOSINOPHILS 0.1 thou/uL (0.0-0.7); ABSOLUTE LYMPHOCYTES 1.5 thou/uL (0.8-5.3); ABSOLUTE MONOCYTES 0.6 thou/uL (0.0-1.2); ABSOLUTE NEUTROPHILS 4.3 thou/uL (1.6-8.1); BASOPHILS 0.4 %; EOSINOPHILS 1.6 %; HEMATOCRIT 32.2 % (37.0-47.0); HEMOGLOBIN 10.9 gm/dL (12.0-15.0); LYMPHOCYTES 22.9 %; MCH 25.8 pg (26.0-34.0); MCV 75.8 fL (80.0-100.0); MONOCYTES 9.7 %; MPV 7.6 fl. (7.2-11.1); NUCLEATED RBCS 0 /100WBC; PLATELET COUNT* 240 thou/uL (150-400); POLYS 65.4 %; RBC 4.24 mil/uL (4.20-5.00); RDW-CV 14.1 % (10.5-14.5); WBC 6.5 thou/uL (4.0-11.0)
[2019-02-06 22:41] LABS: ANION GAP 4 mmol/L (7-16); BUN 11 mg/dL (7-18); CALCIUM 9.3 mg/dL (8.5-10.1); CHLORIDE 99 mmol/L (98-107); CO2 34 mmol/L (21-32); GLUCOSE 116 mg/dL (70-99); POTASSIUM 3.1 mmol/L (3.5-5.1); SODIUM 137 mmol/L (136-145)
[2019-02-06 22:43] LABS: PROTIME 10.6 Seconds (9.20-11.50)
[2019-02-06 22:52] LABS: ALBUMIN 3.3 g/dL (3.4-5.0); ALKALINE PHOSPHATASE 79 U/L (46-116); LIPASE 87 U/L (73-393); NT-PRO BRAIN NAT PEPTIDE 77 pg/mL (<300); SGOT 13 U/L (15-37); SGPT 19 U/L (30-65); TOTAL PROTEIN 6.9 g/dL (6.4-8.2); TROPONIN-I LEVEL <0.06 ng/mL (<0.06)
[2019-02-06 23:33] LABS: URINE BILIRUBIN NEGATIVE (Negative); URINE BLOOD NEGATIVE (Negative); URINE CLARITY CLEAR; URINE COLOR YELLOW; URINE GLUCOSE-RANDOM NEGATIVE (Negative); URINE KETONES NEGATIVE (Negative); URINE LEUKOCYTES-REFLEX NEGATIVE (Negative); URINE NITRITE-REFLEX NEGATIVE (Negative); URINE PROTEIN NEGATIVE (Negative); URINE SPECIFIC GRAVITY <= 1.005 (1.005-1.030); URINE UROBILINOGEN 0.2 E.U./dl (0.2-1.0)
[2019-02-07 00:17] VITALS: BP 125/55
[2019-02-07 01:45] VITALS: BP 132/58
[2019-02-07 04:00] VITALS: BP 124/56
[2019-02-07 08:00] VITALS: BP 125/42
[2019-02-07 08:21] LABS: CALCIUM 9.2 mg/dL (8.5-10.1); CREATININE 0.9 mg/dL (0.6-1.3); MAGNESIUM 1.6 mg/dL (1.8-2.4); POTASSIUM 4.4 mmol/L (3.5-5.1)
[2019-02-07 11:48] VITALS: BP 137/54
[2019-02-07] MEDS ORDERED: AZITHROMYCIN 2250 MG PO (13:55)
[2019-02-07] MEDS ORDERED: VENTOLIN HFA 1818 GM INH (13:55)
[2019-02-07] MEDS ORDERED: PREDNISONE 20 M20 MG PO (13:55)
[2019-02-07 14:45] VITALS: BP 137/54
--- NOTE | 2019-02-07 17:15 | EKG ---
[place] [address] ELECTROCARDIOGRAM REPORT Name: BALWINDER JO Room: [address] M.R.#: [id number] Admission: 02/06/19 Attend Phys: Ken Quiroga MD Discharge: Date of : 51 Report #: [id number] THIS REPORT FOR: //name// [facility] ED Test Date: 2019-02-06 Test Time: 21:48:36 Pat Name: BALWINDER JO Department: Room: [facility] Gender: F Lokie Driver: LISETH : 1955 Requested By: Karin Wolf Order Number: [id number] MD: Dmitry Larry Measurements Intervals [place] Rate: 78 P: 47 CT: 157 QRS: 17 QRSD: 111 T: 55 QT: 428 QTc: 488 Interpretive Statements Sinus rhythm Multiple ventricular premature complexes RSR' in V1 or V2, right VCD or RVH Borderline prolonged QT interval Compared to ECG 10/14/2018 23:55:52 Ventricular premature complex(es) now present Electronically Signed On 02-07-2019 17:15:46 CDT by Dmitry Larry [email or web address] <ELECTRONICALLY SIGNED> By: Dmitry Larry MD, [facility] 02/07/19 1715 Dmitry Larry MD, [facility] /EPI
--- NOTE | 2019-02-07 17:21 | EKG ---
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
--- NOTE | 2019-02-10 12:15 | CON ---
[address] [address] CONSULTATION Name: SANDROBALWINDER M Room: [address] Demar Lubin#: [id number] Admission: 02/06/19 Attend Phys: Ken Quiroga MD Discharge: 02/07/19 Date of : 51 Report #: [id number] THIS REPORT FOR: //name// CC: Ken Monroe DATE OF SERVICE: 02/07/2019 CARDIOLOGY CONSULTATION LOCATION: The patient is in 203. HISTORY OF PRESENT ILLNESS: The patient is a pleasant 63-year-old female with history of coronary artery disease status post stenting of the marginal branch of the circumflex in September of this year. She also has significant bronchoconstrictive pulmonary disease and for the last several days has noted tightness in her chest as well as some wheezing. When she has had a prior acute coronary syndrome in September, there was radiation of the discomfort up into the neck and jaw. This did not occur as she simply experience feeling of tightness or heaviness on her chest, which persisted for a prolonged period of time. She was admitted with concern that this may reflect of recurrent myocardial ischemia. It was not clearly responsive to aspirin or nitrites. She is receiving bronchodilator therapy now, but continues to have some wheezing and notes some dyspnea. The patient notes shortness of breath accompanying this chest tightness, which persists in the setting of her bronchoconstrictive pulmonary disease. Risk factors for coronary artery disease include prior cigarette smoking, hypertension, hypercholesterolemia and diabetes. Prior therapy has included aspirin, atorvastatin, citalopram, fluticasone, L-thyroxine, meloxicam, metformin, metoprolol, sublingual nitroglycerin, Prilosec, Effient, trazodone, and vitamin D3. PAST MEDICAL HISTORY: Remarkable for the aforementioned risk factors as well as prior cholecystectomy and prior stenting in 2004 with a recent stent in 09/2018. FAMILY HISTORY: Remarkable for mother having COPD and sister with lung cancer. There is no history of sudden . SOCIAL HISTORY: The patient is . She no longer smokes. REVIEW OF SYSTEMS: Remarkable for the following positives. RESPIRATORY: She notes cough, shortness of breath [place] [address] CONSULTATION Name: BALWINDER JO Room: [address] Demar Lubin#: [id number] Admission: 02/06/19 Attend Phys: Ken Quiroga MD Discharge: 02/07/19 Date of : 51 Report #: [id number] recent recurrence. CARDIOVASCULAR: History of prior coronary stenting with chest discomfort radiating up into the neck, which is not present at this time. ENDOCRINE: She notes diabetes (type 2) and treated hypothyroidism. ALLERGIC AND IMMUNOLOGIC: She notes seasonal allergies. PSYCHIATRIC: There is a history of depression and chronic anxiety. EYES: She wears glasses. ENT: She does wear dentures. PHYSICAL EXAMINATION: GENERAL: Reveals a modestly overweight middle-aged female, who is mildly tachypneic at rest. VITAL SIGNS: Blood pressure 130/70, pulse rate is 84, respirations are 18 per minute. NECK: Jugular venous pressure is normal. Carotids are 1-2+. CHEST: Reveals no rales or rhonchi, but expiratory wheezing, particularly with forced expiration, which is bilateral. ABDOMEN: Mildly obese and nontender. EXTREMITIES: Without edema with intact femoral, pedal and radial pulses. There are no deformity or arthritic changes. No petechia or ecchymosis are noted. EKGs revealed no acute ischemic changes. LABORATORY DATA: Reveals normal troponin I. IMPRESSION: 1. Chest tightness with shortness of breath; this is most compatible with recurrence for bronchoconstrictive pulmonary disease and is not particularly suggestive of recurrent angina. 2. Coronary artery disease, status post stenting of the first marginal branch of the circumflex in September of this year; that pain radiated up into the neck and she has had none of that and I doubt that the current circumstance reflects recurrent angina. 3. Type 2 diabetes. 4. Hypercholesterolemia. 5. Hypertension. 6. Prior cholecystectomy. RECOMMENDATIONS: 1. Concur with the current regimen directed at bronchodilatation in the context of exacerbation of her bronchoconstrictive pulmonary disease. 2. I would not recommend proceeding with Lexiscan Cardiolite testing at this time as I think it will exacerbate her bronchoconstriction and I doubt whether the current circumflex reflects acute myocardial ischemia. 3. I will follow as an outpatient to ascertain [place] [address] CONSULTATION Name: TANIKAMICHELLEBALWINDER M Room: [address] Demar Lubin#: [id number] Admission: 02/06/19 Attend Phys: Ken Quiroga MD Discharge: 02/07/19 Date of : 51 Report #: [id number] recovery after treatment of the aforementioned bronchoconstrictive pulmonary disease. <ELECTRONICALLY SIGNED> By: Dmitry Larry MD, FACC 02/10/19 1215 1013 1321Jodavion Larry MD, FACC /nt
== END 2019-02-07 16:15 | disposition home or self-care (01) ==
LOC: M.ERS 21:42 → M.2W 23:40 → M.TBA-ER 23:40 → M.2W 02-07 01:17
PROVIDERS: Emergency Medicine; Internal Medicine; ADMIT Internal Medicine
DX: J20.9 Acute bronchitis, unspecified (principal); E44.1 Mild protein-calorie malnutrition; I25.10 Atherosclerotic heart disease of native coronary artery without angina pectoris; F32.9 Major depressive disorder, single episode, unspecified; I25.5 Ischemic cardiomyopathy; K21.9 Gastro-esophageal reflux disease without esophagitis; I10 Essential (primary) hypertension; E78.5 Hyperlipidemia, unspecified; E11.9 Type 2 diabetes mellitus without complications; E87.6 Hypokalemia; D64.9 Anemia, unspecified; Z95.5 Presence of coronary angioplasty implant and graft; Z79.899 Other long term (current) drug therapy

== ENCOUNTER 2020-01-10 21:07 | Emergency (ER) | payer MEDICARE, OTHER ==
[~2020-01-10] VITALS: Ht 154.9 cm; Wt 69.0 kg
[~2020-01-10 21:07] MED LIST changes: +SYNTHROID112 MC1 PO; +TRULICITY0.75 MG/0. SUBQ; +VENTOLIN HFA 1818 GM INH
[2020-01-10] MEDS ORDERED: HYDROCODON-ACE1 EAC7 PO (22:51)
[2020-01-10 23:20] VITALS: BP 158/97
== END 2020-01-10 23:20 | disposition home or self-care (01) ==
LOC: M.ERS 21:07
DX: S42.254A Nondisplaced fracture of greater tuberosity of right humerus, initial encounter for closed fracture (principal); E03.9 Hypothyroidism, unspecified; E78.00 Pure hypercholesterolemia, unspecified; K21.9 Gastro-esophageal reflux disease without esophagitis; I10 Essential (primary) hypertension; E11.9 Type 2 diabetes mellitus without complications; Z88.1 Allergy status to other antibiotic agents; Z88.0 Allergy status to penicillin; Z88.7 Allergy status to serum and vaccine; Z88.8 Allergy status to other drugs, medicaments and biological substances; Z79.82 Long term (current) use of aspirin; Z79.899 Other long term (current) drug therapy; Z98.51 Tubal ligation status; Z90.89 Acquired absence of other organs; W01.0XXA Fall on same level from slipping, tripping and stumbling without subsequent striking against object, initial encounter; Y93.89 Activity, other specified; Y92.89 Other specified places as the place of occurrence of the external cause; Y99.9 Unspecified external cause status

== ENCOUNTER 2020-05-10 12:36 | Inpatient (IN) | payer MEDICARE, OTHER ==
[~2020-05-10] VITALS: Ht 154.9 cm; Wt 70.8 kg
[~2020-05-10 12:36] MED LIST changes: +HYDROCODON-ACE1 EAC7 PO
[2020-05-10 12:55] VITALS: BP 157/72
[2020-05-10] MEDS ORDERED: LIPITOR80 MG PO (12:58)
[2020-05-10 13:28] LABS: ABSOLUTE EOSINOPHILS 0.1 thou/uL (0.0-0.7); ABSOLUTE MONOCYTES 0.8 thou/uL (0.0-1.2); ABSOLUTE NEUTROPHILS 6.8 thou/uL (1.6-8.1); BASOPHILS 0.4 %; EOSINOPHILS 1.2 %; HEMATOCRIT 39.9 % (37.0-47.0); HEMOGLOBIN 13.5 gm/dL (12.0-15.0); LYMPHOCYTES 20.8 %; MCH 27.8 pg (26.0-34.0); MCHC 33.8 g/dL (28.0-37.0); MCV 82.3 fL (80.0-100.0); MONOCYTES 8.3 %; MPV 7.6 fl. (7.2-11.1); NUCLEATED RBCS 0 /100WBC; PLATELET COUNT* 273 thou/uL (150-400); POLYS 69.3 %; RBC 4.86 mil/uL (4.20-5.00); RDW-CV 14.4 % (10.5-14.5); WBC 9.8 thou/uL (4.0-11.0)
[2020-05-10 13:40] LABS: CALCIUM 8.7 mg/dL (8.5-10.1); CREATININE 1.1 mg/dL (0.6-1.3); POTASSIUM 3.6 mmol/L (3.5-5.1)
[2020-05-10 13:44] LABS: ALBUMIN 3.7 g/dL (3.4-5.0); TOTAL BILIRUBIN 0.6 mg/dL (<0.1-1.0); TOTAL PROTEIN 7.1 g/dL (6.4-8.2)
[2020-05-10 15:17] LABS: URINE BILIRUBIN NEGATIVE (Negative); URINE BLOOD TRACE (Negative); URINE CLARITY CLEAR; URINE COLOR YELLOW; URINE GLUCOSE-RANDOM NEGATIVE (Negative); URINE KETONES NEGATIVE (Negative); URINE LEUKOCYTES-REFLEX NEGATIVE (Negative); URINE NITRITE-REFLEX NEGATIVE (Negative); URINE PROTEIN NEGATIVE (Negative); URINE UROBILINOGEN 0.2 E.U./dl (0.2-1.0)
[2020-05-10 18:34] VITALS: BP 125/46
[2020-05-10 19:50] VITALS: BP 104/50
[2020-05-10] MEDS ORDERED: TRAZODONE HCL100 MG PO (21:38)
[2020-05-10] MEDS ORDERED: LEVO-T100 MCG PO (22:10)
[2020-05-10] MEDS ORDERED: SPIRONOLACTONE50 MG PO (22:14)
[2020-05-11 07:20] VITALS: BP 109/40
[2020-05-11 09:18] VITALS: BP 95/40
[2020-05-11 09:44] VITALS: BP 95/40
--- NOTE | 2020-05-11 10:00 | EKG ---
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1955 Requested By: Naldo Felix Order Number: [id number] MD: Andrea Milian Measurements Intervals [place] Rate: 80 P: 52 [place]: 157 QRS: 31 QRSD: 107 T: 60 QT: 385 QTc: 445 Interpretive Statements Sinus rhythm Low voltage, precordial leads RSR' in V1 or V2, right VCD or RVH Baseline wander in lead(s) I,III,aVL Compared to ECG 02/07/2019 11:31:48 Low QRS voltage now present Electronically Signed On 05-11-2020 10:00:17 CDT by Andrea Milian [email or web address] <ELECTRONICALLY SIGNED> By: Andrea Milian MD, FACC 05/11/20 1000 1309 1309 Andrea Milian MD, [facility] /EPI
[2020-05-11] MEDS ORDERED: FLAGYL500 M1 PO (10:21)
[2020-05-11] MEDS ORDERED: BACTRIM DS TAB1 EAC1 PO (10:22)
[2020-05-11 10:44] VITALS: BP 95/40
--- NOTE | 2020-05-12 10:15 | CON ---
[address] [address] CONSULTATION Name: BALWINDER JO Denice Room: [address] IN M.R.#: [id number] Admission: 05/10/20 Attend Phys: Denice Barnett Discharge: 05/11/20 Date of : 51 Report #: [id number] THIS REPORT FOR: //name// cc: Deena Monroe MD, Elizabeth A. MD ~ THIS REPORT FOR: //name// DATE OF SERVICE: 05/11/2020 HISTORY OF PRESENT ILLNESS: This is a pleasant 64-year-old female with past medical history significant for diabetes, hypertension, coronary artery disease, on anticoagulation with prasugrel who presented with abdominal pain, cramps and blood in her stool. The patient reports she had a meal at [facility] on Tuesday and within a few hours began having abdominal cramps and diarrhea. The patient reports after couple of episodes she noticed 4-5 episodes of bloody stools. She reported noticing 2-3 teaspoons full of blood in her stool. She denies any such symptoms in the last 12 hours. She denies any abdominal pain, but has occasional abdominal cramps at this time. She denies any fevers, chills and denies similar episodes in the past. The patient did have a colonoscopy 5 years back, which was unremarkable. PAST MEDICAL HISTORY: Hypertension, coronary artery disease, and hyperlipidemia. PAST SURGICAL HISTORY: History of tubal ligation, carpal tunnel surgery. SOCIAL HISTORY: The patient has 100 pack year smoking history. Denies alcohol or recreational drugs. FAMILY HISTORY: No family history of colon cancer or Erwin related neoplasia. REVIEW OF SYSTEMS: A comprehensive 10-point review of systems is negative except for what was mentioned in the HPI. PHYSICAL EXAMINATION: VITAL SIGNS: Temperature 37.1, pulse rate 71, respirations 14, blood pressure 104/50, pulse ox 97% on room air. GENERAL: The patient is alert, awake, oriented x 3. HEENT: Pupils are equal, round, reactive to light and accommodation. Mucous membranes are moist. There is no congestion. LUNGS: Clear to auscultation bilaterally. CARDIOVASCULAR: Rate and rhythm regular, S1, S2 present. ABDOMEN: Soft. There is no distention, guarding or rigidity. EXTREMITIES: Warm and well perfused. There is no edema. SKIN: [place] [address] CONSULTATION Name: BALWINDER JO Room: [address]#: [id number] Admission: 05/10/20 Attend Phys: Denice Barnett Discharge: 05/11/20 Date of : 51 Report #: [id number] LABORATORY DATA: Hemoglobin 13.5, hematocrit 39.9, platelet count is 73, WBC count 9.8. Sodium 133, potassium 3.6, chloride 99, bicarbonate 30, BUN 13, creatinine 1.1, total bilirubin 0.6, AST 15, ALT 22, alkaline phosphatase 98. IMAGING: Abdomen and pelvis CT, this demonstrates circumferential mural thickening of the descending colon with mild surrounding inflammation consistent with nonspecific colitis, likely infectious, inflammatory or ischemic colitis, difficulty swallowing, mild distal colonic diverticulosis without evidence of diverticulitis. ASSESSMENT AND PLAN: Pleasant 64-year-old female with history of coronary artery disease, on chronic anticoagulation, presenting with abdominal cramps, diarrhea and small amount of blood in stool following a meal at [employer]. This likely represents food poisoning. The patient has not had any bowel movement for the last 12 hours. Her symptoms appear to be abating. I would not recommend endoscopic evaluation at this time. Discharge the patient on Cipro and Flagyl for a total of 5 days. Thank you for this consultation. <ELECTRONICALLY SIGNED> By: Simone Szymanski MD 05/12/20 1015 1502 1607Simone Szymanski MD /nt
== END 2020-05-11 11:13 | disposition home or self-care (01) | DRG 371 ==
LOC: M.ERS 12:36 → M.TBA-ER 15:50 → M.ORTHSURG 15:50
PROVIDERS: Emergency Medicine Emergency Medical Services; ADMIT Internal Medicine; ATTEND Internal Medicine
DX: A04.9 Bacterial intestinal infection, unspecified (principal); K57.31 Diverticulosis of large intestine without perforation or abscess with bleeding; R65.10 Systemic inflammatory response syndrome (SIRS) of non-infectious origin without acute organ dysfunction; I25.10 Atherosclerotic heart disease of native coronary artery without angina pectoris; E03.9 Hypothyroidism, unspecified; E78.00 Pure hypercholesterolemia, unspecified; K21.9 Gastro-esophageal reflux disease without esophagitis; I10 Essential (primary) hypertension; E11.9 Type 2 diabetes mellitus without complications; E26.9 Hyperaldosteronism, unspecified; J44.9 Chronic obstructive pulmonary disease, unspecified; E78.5 Hyperlipidemia, unspecified; Z20.828 Contact with and (suspected) exposure to other viral communicable diseases; Z95.5 Presence of coronary angioplasty implant and graft; Z79.82 Long term (current) use of aspirin; Z79.899 Other long term (current) drug therapy; Z88.1 Allergy status to other antibiotic agents; Z88.0 Allergy status to penicillin; Z88.7 Allergy status to serum and vaccine; Z88.8 Allergy status to other drugs, medicaments and biological substances; Z79.01 Long term (current) use of anticoagulants; I25.2 Old myocardial infarction; Z87.891 Personal history of nicotine dependence

== ENCOUNTER 2020-10-04 10:19 | Emergency (ER) | payer MEDICARE, OTHER ==
[~2020-10-04] VITALS: Ht 157.5 cm; Wt 70.3 kg
[~2020-10-04 10:19] MED LIST changes: +BACTRIM DS TAB1 EAC1 PO; +FLAGYL500 M1 PO; +LEVO-T100 MCG PO; +LIPITOR80 MG PO; +SPIRONOLACTONE50 MG PO
[2020-10-04] MEDS ORDERED: ONE A DAY (10:30)
[2020-10-04] MEDS ORDERED: CELEXA 20 MG TA20 MG PO (10:31)
[2020-10-04] MEDS ORDERED: LEVOXYL200 MCG PO (10:31)
[2020-10-04] MEDS ORDERED: OMEPRAZOLE 20 M20 M1 PO (10:31)
[2020-10-04] MEDS ORDERED: EFFIENT10 MG PO (10:32)
[2020-10-04] MEDS ORDERED: LIPITOR 20 MG T20 M1 PO (10:38)
[2020-10-04] MEDS ORDERED: SPIRONOLACTONE50 MG PO (10:38)
[2020-10-04] MEDS ORDERED: VITAMIN D31 ML PO (10:38)
[2020-10-04] MEDS ORDERED: TRULICITY0.75 MG/0. (10:39)
[2020-10-04] MEDS ORDERED: CHILDREN'S ASPI81 M1 PO (10:39)
[2020-10-04 11:51] VITALS: BP 160/95
== END 2020-10-04 11:51 | disposition home or self-care (01) ==
LOC: M.ERS 10:19
DX: R04.0 Epistaxis (principal); E03.9 Hypothyroidism, unspecified; E78.00 Pure hypercholesterolemia, unspecified; K21.9 Gastro-esophageal reflux disease without esophagitis; I10 Essential (primary) hypertension; E11.9 Type 2 diabetes mellitus without complications; Z87.891 Personal history of nicotine dependence; Z88.1 Allergy status to other antibiotic agents; Z88.7 Allergy status to serum and vaccine; Z88.0 Allergy status to penicillin; Z88.8 Allergy status to other drugs, medicaments and biological substances; Z98.51 Tubal ligation status; Z90.89 Acquired absence of other organs

== ENCOUNTER 2020-10-05 13:49 | Inpatient (IN) | payer MEDICARE, OTHER ==
[~2020-10-05] VITALS: Ht 157.5 cm; Wt 77.1 kg
--- NOTE | ~2020-10-05 | PROC ---
[address] [address] PROCEDURE REPORT Name: BALWINDER JO Room: [address] IN M.R.#: [id number] Admission: 10/05/20 Attend Phys: Ken Quiroga MD Discharge: 10/07/20 Date of : 51 Report #: [id number] THIS REPORT FOR: cc: Deena Monroe MD, Elizabeth A. MD ~ [facility],Medical Records Staff For GI report, please see the Provation report in Perceptive 7 content. By: [facility]1Medical Records Staff [facility] /MIKHAIL
[~2020-10-05 13:49] MED LIST changes: +CELEXA 20 MG TA20 MG PO; +CHILDREN'S ASPI81 M1 PO; +LEVOXYL200 MCG PO; +OMEPRAZOLE 20 M20 M1 PO; +ONE A DAY; +TRULICITY0.75 MG/0.; +VITAMIN D31 ML PO
[2020-10-05 13:51] VITALS: BP 89/48
[2020-10-05 14:26] LABS: HEMOGLOBIN 15.3 gm/dL (12.0-15.0); MCH 27.6 pg (26.0-34.0); MCHC 33.3 g/dL (28.0-37.0); MCV 82.9 fL (80.0-100.0); NUCLEATED RBCS 0 /100WBC; PLATELET COUNT* 370 thou/uL (150-400); RBC 5.55 mil/uL (4.20-5.00); RDW-CV 14.5 % (10.5-14.5); WBC 17.1 thou/uL (4.0-11.0)
[2020-10-05 14:37] LABS: CALCIUM 8.8 mg/dL (8.5-10.1); CREATININE 1.5 mg/dL (0.6-1.3); POTASSIUM 3.3 mmol/L (3.5-5.1)
[2020-10-05 14:41] LABS: ALBUMIN 3.8 g/dL (3.4-5.0); TOTAL BILIRUBIN 0.7 mg/dL (<0.1-1.0); TOTAL PROTEIN 7.1 g/dL (6.4-8.2)
[2020-10-05 14:50] LABS: ABSOLUTE LYMPHOCYTES 3.1 thou/uL (0.8-5.3); ABSOLUTE MONOCYTES 0.3 thou/uL (0.0-1.2); ABSOLUTE NEUTROPHILS 13.7 thou/uL (1.6-8.1); PLATELET ESTIMATE ADEQUATE
[2020-10-05 17:42] VITALS: BP 94/34
[2020-10-05 17:55] VITALS: BP 91/44
[2020-10-05 18:23] VITALS: BP 92/43
[2020-10-05 20:15] VITALS: BP 91/52
[2020-10-05 22:44] LABS: URINE BILIRUBIN NEGATIVE (Negative); URINE BLOOD NEGATIVE (Negative); URINE CLARITY CLEAR; URINE COLOR YELLOW; URINE GLUCOSE-RANDOM NEGATIVE (Negative); URINE KETONES NEGATIVE (Negative); URINE LEUKOCYTES-REFLEX NEGATIVE (Negative); URINE NITRITE-REFLEX NEGATIVE (Negative); URINE PROTEIN NEGATIVE (Negative); URINE UROBILINOGEN 0.2 E.U./dl (0.2-1.0)
[2020-10-05 23:42] VITALS: BP 95/51
[2020-10-06 04:15] VITALS: BP 92/49
--- NOTE | 2020-10-06 04:21 | NUR ---
PT AO X4 LYING IN BED AT TIME OF ASSESSMENT. PT STATES SHE HAS FELT WELL UP UNTIL THE PAST FEW DAYS, HAVING SOME LOW ABD PAIN AND TODAY HAVING BRBPR. PT HAS HAD SOFT BP TODAY AND HAS GENERALLY FEELING WEAK. BOWEL SOUNDS HYPOACTIVE X4 , NO BM SINCE ARRIVAL. 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 PT NPO AFTER MIDNIGHT
[2020-10-06 04:32] LABS: ABSOLUTE EOSINOPHILS 0.3 thou/uL (0.0-0.7); ABSOLUTE LYMPHOCYTES 2.5 thou/uL (0.8-5.3); ABSOLUTE MONOCYTES 0.7 thou/uL (0.0-1.2); ABSOLUTE NEUTROPHILS 8.4 thou/uL (1.6-8.1); BASOPHILS 0.1 %; EOSINOPHILS 2.4 %; HEMATOCRIT 36.9 % (37.0-47.0); LYMPHOCYTES 20.9 %; MCH 27.3 pg (26.0-34.0); MCV 82.8 fL (80.0-100.0); MONOCYTES 6.2 %; NUCLEATED RBCS 0 /100WBC; POLYS 70.4 %; RBC 4.46 mil/uL (4.20-5.00); RDW-CV 14.4 % (10.5-14.5); WBC 11.9 thou/uL (4.0-11.0)
[2020-10-06 04:40] LABS: CALCIUM 8.2 mg/dL (8.5-10.1); CREATININE 1.1 mg/dL (0.6-1.3)
[2020-10-06 05:10] LABS: HEMOGLOBIN 12.2 gm/dL (12.0-15.0); PLATELET COUNT* 248 thou/uL (150-400)
[2020-10-06 08:00] VITALS: BP 105/39
--- NOTE | 2020-10-06 10:10 | NUR ---
CM SPOKE TO THE PT TO DISCUSS CM ASSESMENT. PT A&O, NORMALLY INDEPENDENT WITH ADL'S, AND DRIVES. PT RESIDES AT HOME WITH SPOUSE AND ADULT GRANDCHIDREN. PT USES 0 DME. PT HAS PAST HX OF HH, BUT COULD NOT RECALL THE NAME. PT HAS 0 HX OF SNF. CM WILL REMAIN AVAILABLE TO ASSIST AND FOLLOW NEEDED.
--- NOTE | 2020-10-06 11:15 | EKG ---
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 : 1955 Requested By: Simon Toribio Order Number: [id number] MD: Andrea Milian Measurements Intervals [place] Rate: 65 P: 83 AL: 150 QRS: 59 QRSD: 108 T: 78 QT: 439 QTc: 457 Interpretive Statements Sinus rhythm incomplete RBBB Multiple ventricular premature complexes Nonspecific T abnrm, anterolateral leads Compared to ECG 05/10/2020 13:09:30 Ventricular premature complex(es) now present Electronically Signed On 10-06-2020 11:14:56 CDT by Andrea Milian [email or web address] <ELECTRONICALLY SIGNED> By: Andrea Milian MD, FACC 10/06/20 1114 11 11 Andrea Milian MD, FAC /EPI
[2020-10-06 11:49] VITALS: BP 101/40
[2020-10-06 16:00] VITALS: BP 111/47
[2020-10-06 20:00] VITALS: BP 133/70
[2020-10-07 00:11] VITALS: BP 108/37
--- NOTE | 2020-10-07 05:34 | NUR ---
PT SLEPT ON AND OFF THIS SHIFT. ASSESSMENT DOCUMENTED. MEDS GIVEN PER E-MAR. IV PATENT, FLUIDS INFUSING. PT ON BOWEL PREP, PTS STOOLS ARE CURRENTLY CLEAR WITH A LITTLE BIT OF SEDIMENT. NO REPORTS OF PAIN. PT REPORTED NAUSEA AT BEGINING OF SHIFT. PT ABLE TO MAKE NEEDS KNOWN. WILL CONTINUE WITH PLAN OF CARE.
[2020-10-07 06:03] VITALS: BP 113/44
[2020-10-07 06:27] LABS: ABSOLUTE EOSINOPHILS 0.3 thou/uL (0.0-0.7); ABSOLUTE MONOCYTES 0.6 thou/uL (0.0-1.2); ABSOLUTE NEUTROPHILS 6.5 thou/uL (1.6-8.1); BASOPHILS 0.2 %; EOSINOPHILS 2.7 %; HEMATOCRIT 33.4 % (37.0-47.0); HEMOGLOBIN 11.1 gm/dL (12.0-15.0); LYMPHOCYTES 21.3 %; MCH 27.8 pg (26.0-34.0); MCHC 33.3 g/dL (28.0-37.0); MCV 83.7 fL (80.0-100.0); MONOCYTES 6.5 %; MPV 7.3 fl. (7.2-11.1); NUCLEATED RBCS 0 /100WBC; PLATELET COUNT* 203 thou/uL (150-400); POLYS 69.3 %; RBC 3.99 mil/uL (4.20-5.00); RDW-CV 14.5 % (10.5-14.5); WBC 9.3 thou/uL (4.0-11.0)
[2020-10-07 06:51] LABS: ALBUMIN 2.7 g/dL (3.4-5.0); CALCIUM 7.9 mg/dL (8.5-10.1); POTASSIUM 3.3 mmol/L (3.5-5.1); TOTAL BILIRUBIN 0.6 mg/dL (<0.1-1.0); TOTAL PROTEIN 5.2 g/dL (6.4-8.2)
--- NOTE | 2020-10-07 09:54 | NUR ---
PT NPO FOR COLONOSCOPY TODAY.
[2020-10-07] MEDS ORDERED: FLAGYL500 M1 PO (10:10)
--- NOTE | 2020-10-07 12:06 | NUR ---
GI following, plan scope today. Dc either later today or tomorrow pending scope. No needs.
--- NOTE | 2020-10-07 13:09 | NUR ---
PT OFF UNIT TO GI LAB.
--- NOTE | 2020-10-07 16:46 | NUR ---
PT RETURN FROM GI LAB.
--- NOTE | 2020-10-07 17:13 | NUR ---
DISCONTINUE IV AND TELE. PT UNDERSTANDS ALL FOLLOW UP ORDERS. OK TO DC TO HOME PER DR. MISTRY.
--- NOTE | 2020-10-07 17:18 | NUR ---
CALLED VANCOMYCIN PO TO [facility].
[2020-10-07 17:38] VITALS: BP 113/44
== END 2020-10-07 17:46 | disposition home or self-care (01) | DRG 377 ==
LOC: M.ERS 13:49 → M.2W 15:13 → M.TBA-ER 15:13 → M.2W 18:10
PROVIDERS: Family Medicine; ADMIT Internal Medicine; ATTEND Internal Medicine
PROC: 0DBN8ZX Excision of Sigmoid Colon, Via Natural or Artificial Opening Endoscopic, Diagnostic (ICD-10-PCS; principal; 2020-10-07)
DX: K57.31 Diverticulosis of large intestine without perforation or abscess with bleeding (principal); N17.0 Acute kidney failure with tubular necrosis; R65.11 Systemic inflammatory response syndrome (SIRS) of non-infectious origin with acute organ dysfunction; R57.8 Other shock; K51.011 Ulcerative (chronic) pancolitis with rectal bleeding; A04.72 Enterocolitis due to Clostridium difficile, not specified as recurrent; I95.9 Hypotension, unspecified; E03.9 Hypothyroidism, unspecified; K64.8 Other hemorrhoids; K63.89 Other specified diseases of intestine; I25.10 Atherosclerotic heart disease of native coronary artery without angina pectoris; E78.00 Pure hypercholesterolemia, unspecified; K21.9 Gastro-esophageal reflux disease without esophagitis; I10 Essential (primary) hypertension; E11.9 Type 2 diabetes mellitus without complications; T14.8XXA Other injury of unspecified body region, initial encounter; X58.XXXA Exposure to other specified factors, initial encounter; Z20.822 Contact with and (suspected) exposure to COVID-19; Z12.11 Encounter for screening for malignant neoplasm of colon; Z95.5 Presence of coronary angioplasty implant and graft; Z79.82 Long term (current) use of aspirin; Z79.899 Other long term (current) drug therapy; Z88.1 Allergy status to other antibiotic agents; Z88.0 Allergy status to penicillin; Z88.7 Allergy status to serum and vaccine; Z88.8 Allergy status to other drugs, medicaments and biological substances; Z87.891 Personal history of nicotine dependence; Y93.89 Activity, other specified; Y92.89 Other specified places as the place of occurrence of the external cause; Y99.8 Other external cause status

== ENCOUNTER 2020-10-14 12:33 | Emergency (ER) | payer MEDICARE, OTHER ==
[~2020-10-14] VITALS: Ht 157.5 cm; Wt 70.3 kg
[2020-10-14 12:58] LABS: ABSOLUTE EOSINOPHILS 0.2 thou/uL (0.0-0.7); ABSOLUTE LYMPHOCYTES 1.2 thou/uL (0.8-5.3); ABSOLUTE MONOCYTES 0.5 thou/uL (0.0-1.2); ABSOLUTE NEUTROPHILS 5.5 thou/uL (1.6-8.1); BASOPHILS 0.2 %; EOSINOPHILS 2.2 %; HEMATOCRIT 38.4 % (37.0-47.0); HEMOGLOBIN 12.6 gm/dL (12.0-15.0); LYMPHOCYTES 16.4 %; MCH 27.6 pg (26.0-34.0); MCHC 32.9 g/dL (28.0-37.0); MCV 83.8 fL (80.0-100.0); MONOCYTES 6.4 %; MPV 7.7 fl. (7.2-11.1); NUCLEATED RBCS 0 /100WBC; PLATELET COUNT* 251 thou/uL (150-400); POLYS 74.8 %; RBC 4.58 mil/uL (4.20-5.00); RDW-CV 14.3 % (10.5-14.5); WBC 7.4 thou/uL (4.0-11.0)
[2020-10-14 13:16] LABS: APTT 25.1 Seconds (25.0-31.3); PROTIME 10.9 Seconds (9.20-11.50)
[2020-10-14 13:17] LABS: ANION GAP 9 mmol/L (7-16); BUN 13 mg/dL (7-18); CALCIUM 8.2 mg/dL (8.5-10.1); CHLORIDE 101 mmol/L (98-107); CO2 27 mmol/L (21-32); CREATININE 1.1 mg/dL (0.6-1.3); GLUCOSE 170 mg/dL (70-99); POTASSIUM 3.2 mmol/L (3.5-5.1); SODIUM 137 mmol/L (136-145)
[2020-10-14 13:34] LABS: ALBUMIN 3.5 g/dL (3.4-5.0); ALKALINE PHOSPHATASE 67 U/L (46-116); LIPASE 162 U/L (73-393); MAGNESIUM 1.6 mg/dL (1.8-2.4); NT-PRO BRAIN NAT PEPTIDE 63 pg/mL (<300); SGOT 36 U/L (15-37); SGPT 46 U/L (30-65); TOTAL BILIRUBIN 0.5 mg/dL (<0.1-1.0); TOTAL PROTEIN 6.7 g/dL (6.4-8.2)
[2020-10-14 13:57] LABS: CK-MB MASS < 0.5 ng/mL (<0.5-3.6)
[2020-10-14 15:30] VITALS: BP 102/32
--- NOTE | 2020-10-15 10:06 | EKG ---
[place] [address] ELECTROCARDIOGRAM REPORT Name: BALWINDER JO Room: [facility]#: [id number] Admission: 10/14/20 Attend Phys: Discharge: 10/14/20 Date of : 51 Date of Service: 10/14/20 1237 Report #: [id number] THIS REPORT FOR: //name// [facility] ED Test Date: 2020-10-14 Test Time: 12:37:51 Pat Name: BALWINDER JO Department: Room: Gender: F Notereader: MARICEL : 1955 Requested By: Simon Toribio Order Number: [id number] MD: Dmitry Larry Measurements Intervals [place] Rate: 81 P: 68 [place]: 156 QRS: 24 QRSD: 112 T: 72 QT: 426 QTc: 495 Interpretive Statements Sinus rhythm Ventricular bigeminy Incomplete right bundle branch block Compared to ECG 10/05/2020 14:12:19 Incomplete right bundle-branch block now persists Electronically Signed On 10-15-2020 10:06:12 CDT by Dmitry Larry [email or web address] <ELECTRONICALLY SIGNED> By: mDitry Larry MD, [facility] 10/15/20 1006 1237 1237 Dmitry Larry MD, [facility] /EPI
== END 2020-10-14 15:30 | disposition home or self-care (01) ==
LOC: M.ERS 12:33
PROVIDERS: Family Medicine
DX: R07.89 Other chest pain (principal); K21.9 Gastro-esophageal reflux disease without esophagitis; I10 Essential (primary) hypertension; E03.9 Hypothyroidism, unspecified; E11.9 Type 2 diabetes mellitus without complications; Z87.891 Personal history of nicotine dependence; Z88.0 Allergy status to penicillin; Z88.1 Allergy status to other antibiotic agents; Z88.8 Allergy status to other drugs, medicaments and biological substances; Z90.89 Acquired absence of other organs; Z98.51 Tubal ligation status; Z95.5 Presence of coronary angioplasty implant and graft

== ENCOUNTER → 2020-12-11 | Outpatient (CLI) | payer MEDICARE, OTHER ==
[~2020-12-11] MED LIST changes: +DESYREL150 MG PO; +TRELEGY ELLIPT1 EACH
--- NOTE | 2020-12-11 17:05 | CARDNUC ---
[place] [address] CARDIAC NUCLEAR IMAGING REPORT Name: BALWINDER JO Room: [facility]#: [id number] Admission: 12/11/20 Attend Phys: Denice Monique Discharge: Date of : 51 Date of Service: 12/11/20 1705 Report #: [id number] THIS REPORT FOR: cc: Deena Monroe MD, Elizabeth A. MD Biggs, F. Douglas MD [facility] ~ APPROVED REPORT Study performed: 12/11/2020 09:30:00 Indication: follow up Patient Location: Out-Patient Stress Tech: Chloe Mae Stress Nurse: Anne-Marie Shah RN Ht: 5 ft 1 in Wt: 155 lbs BSA: 1.69 m2 BMI: 29.28 Medical History Medical History: COPD, CAD s/p stent, Diabetic Noninsulin, HTN Medications: asa-81, atorvastatin, ntg, effient, spironolactone Allergies: multiple Cardiac Risk Factors: Age, Diabetes (non-insulin), HTN, Tobacco History (Former) Previous Cardiac Procedures: PCI Exercise History: Sedentary Resting Data Rest SPECT myocardial perfusion imaging was performed in supine position 30 minutes following the intravenous injection of 11.4 mCi of Tc-99m Sestamibi. Time of rest injection: 09:55 The images were gated to evaluate regional wall motion and calculate left ventricular ejection fraction. Administration Route: IV Administration Site: Right AC Pharmacologic Stress Pharmacologic stress test was performed by injecting Regadenoson 0.4 mg IV push over 10-15 seconds immediately followed by the intravenous injection of 34.5 mCi of Tc-99m Sestamibi. Time of stress injection: 11:55 [place] [address] CARDIAC NUCLEAR IMAGING REPORT Name: BALWINDER JO Room: [facility]#: [id number] Admission: 12/11/20 Attend Phys: Denice Monique Discharge: Date of : 51 Date of Service: 12/11/20 1705 Report #: [id number] Administration Route: IV Administration Site: Right AC Heart Rate at time of stress injection: 83 bpm. Gated Stress SPECT was performed 40 minutes after stress injection. The images were gated to evaluate regional wall motion and calculate left ventricular ejection fraction. Prone imaging was performed. Stress Test Details Stress Test: Pharmacologic stress testing performed using 0.4 mg of regadenoson per 5 mL given IV over 10 seconds. HR Max Heart Rate (APMHR): 153 bpm Resting HR: 65 bpm Target HR (85% APMHR): 130 bpm Max HR Achieved: 83 bpm % of APMHR: 54 Recovery HR: 84 bpm HR response to stress: Normal HR response to stress BP Resting BP: 117/66 mmHg Max BP: 106/61 mmHg Recovery BP: 113/63 mmHg BP response to stress: Normal blood pressure response to stress. ECG Resting ECG: Sinus rhythm, incomplete right bundle branch block Stress ECG: Sinus Rhythm, incomplete right bundle branch block ST Change: None Arrhythmia: None Recovery ECG: Sinus Rhythm, incomplete right bundle branch block Recovery ST Change: None Recovery Arrhythmia: None Clinical Reason for Termination: Completed protocol Stress Symptoms: None Nurse Comments pt too unsteady on feet cannot walk on treadmill [place] [address] CARDIAC NUCLEAR IMAGING REPORT Name: BALWINDER JO Room: [facility]#: [id number] Admission: 12/11/20 Attend Phys: Denice Monique Discharge: Date of : 51 Date of Service: 12/11/20 1705 Report #: [id number] Clinical: Non-ischemic Non-diagnostic pharmacologic EKG stress due to failure to attain target HR. Study Quality Study: Good Artifact: No artifact Lung Uptake: Normal Study Data At rest, the left ventricular ejection fraction was 68%.. Post stress, the left ventricular ejection was 66%.. SSS: 0 SRS: 0 SDS: 0 TID = 1.07. Perfusion The resting study was normal there were no defects seen. The post stress study was also normal there were no defects seen. Prone images were obtained and they were also normal there were no defects seen. There were no reversible defects seen there was no evidence of myocardial ischemia. Normal perfusion on both the stress and rest images. Images were reviewed using [employer]. Wall Motion Normal left ventricular wall motion. Nuclear Conclusion ECG Findings: non-diagnostic Clinical Findings: negative for ischemia Nuclear Findings: negative for ischemia Exercise Capacity: not assessed Left Ventricular Function: normal Risk Study: low Normal study. No scintigraphic evidence for myocardial ischemia or scar. <Conclusion> Clinical: [place] [address] CARDIAC NUCLEAR IMAGING REPORT Name: BALWINDER JO Room: [facility]#: [id number] Admission: 12/11/20 Attend Phys: Denice Monique Discharge: Date of : 51 Date of Service: 12/11/201704 Report #: [id number] Non-diagnostic pharmacologic EKG stress due to failure to attain target HR. <ELECTRONICALLY SIGNED> By: Elizabeth Sharp MD, FACC 12/11/201704 04 04 Elizabeth Sharp MD, FACC /INF
== END ==
LOC: M.NUC 11-12 15:00 → M.CRD 09:00 → M.NUC 09:30
PROVIDERS: ATTEND Internal Medicine
DX: I25.10 Atherosclerotic heart disease of native coronary artery without angina pectoris (principal); Z95.5 Presence of coronary angioplasty implant and graft; E11.9 Type 2 diabetes mellitus without complications

== ENCOUNTER 2021-02-24 08:43 | Emergency (ER) | payer MEDICARE, OTHER ==
[~2021-02-24] VITALS: Ht 154.9 cm; Wt 70.3 kg
[2021-02-24] MEDS ORDERED: MEDROLDOSEPACK PO (10:28)
[2021-02-24] MEDS ORDERED: HYDROCODON-ACE1 EAC7 PO (10:28)
[2021-02-24 11:09] VITALS: BP 122/66
--- NOTE | 2021-02-25 09:31 | EKG ---
[place] [address] ELECTROCARDIOGRAM REPORT Name: BALWINDER JO Room: [facility]#: [id number] Admission: 02/24/21 Attend Phys: Discharge: 02/24/21 Date of : 51 Date of Service: 02/24/21 1025 Report #: [id number] THIS REPORT FOR: //name// [facility] ED Test Date: 2021-02-24 Test Time: 10:25:52 Pat Name: BALWINDER JO Department: Room: Gender: F [employer]: [employer] : 1955 Requested By: Simon Toribio Order Number: [id number] MD: Andrea Milian Measurements Intervals [place] Rate: 108 P: 68 CA: 160 QRS: 51 QRSD: 109 T: 62 QT: 446 QTc: 598 Interpretive Statements Sinus bradycardia incomplete RBBB septal infarct, age indeterminate Compared to ECG 10/14/2020 12:37:51 Myocardial infarct finding now present pvc's no longer seen Electronically Signed On 02-25-2021 9:31:07 CDT by Andrea Milian [email or web address] <ELECTRONICALLY SIGNED> By: Andrea Milian MD, [facility] 02/25/21 0931 1025 1025 Andrea Milian MD, [facility] /EPI
== END 2021-02-24 11:12 | disposition home or self-care (01) ==
LOC: M.ERS 08:43
DX: M79.631 Pain in right forearm (principal); I10 Essential (primary) hypertension; E11.9 Type 2 diabetes mellitus without complications; K21.9 Gastro-esophageal reflux disease without esophagitis; E03.9 Hypothyroidism, unspecified; F17.210 Nicotine dependence, cigarettes, uncomplicated; E78.00 Pure hypercholesterolemia, unspecified; Z90.89 Acquired absence of other organs; Z98.51 Tubal ligation status; Z88.1 Allergy status to other antibiotic agents; Z88.7 Allergy status to serum and vaccine; Z88.0 Allergy status to penicillin

== ENCOUNTER 2021-05-04 15:30 | Emergency (ER) | payer MEDICARE, OTHER ==
[~2021-05-04] VITALS: Ht 154.9 cm; Wt 74.8 kg
[~2021-05-04 15:30] MED LIST changes: +MEDROLDOSEPACK PO
--- NOTE | 2021-05-04 16:04 | EKG ---
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: [facility] : 1955 Requested By: Simon Toribio Order Number: [id number] MD: Andrea Milian Measurements Intervals [place] Rate: 75 P: 70 IA: 148 QRS: 47 QRSD: 102 T: 73 QT: 416 QTc: 465 Interpretive Statements Sinus rhythm Low voltage, precordial leads RSR' in V1 or V2, right VCD or RVH Nonspecific T abnrm, anterolateral leads Baseline wander in lead(s) V2 Compared to ECG 02/24/2021 10:25:52 Low QRS voltage now present Sinus bradycardia no longer present Myocardial infarct finding still present Electronically Signed On 05-04-2021 16:03:58 CDT by Andrea Milian [email or web address] <ELECTRONICALLY SIGNED> By: Andrea Milian MD, FACC 05/04/21 1603 1534 1534 Andrea Milian MD, FAC /EPI
[2021-05-04] MEDS ORDERED: LIVALO4 MG PO (16:06)
[2021-05-04] MEDS ORDERED: ZINC30 M1 PO (16:06)
[2021-05-04] MEDS ORDERED: CELEXA20 MG PO (16:08)
[2021-05-04 16:25] LABS: ABSOLUTE BASOPHILS 0.1 thou/uL (0.0-0.2); ABSOLUTE EOSINOPHILS 0.2 thou/uL (0.0-0.7); ABSOLUTE LYMPHOCYTES 2.9 thou/uL (0.8-5.3); ABSOLUTE MONOCYTES 0.8 thou/uL (0.0-1.2); ABSOLUTE NEUTROPHILS 5.7 thou/uL (1.6-8.1); BASOPHILS 0.7 %; CREATININE 1.2 mg/dL (0.6-1.3); EOSINOPHILS 1.6 %; HEMATOCRIT 40.1 % (37.0-47.0); HEMOGLOBIN 13.5 gm/dL (12.0-15.0); LYMPHOCYTES 30.4 %; MCH 27.6 pg (26.0-34.0); MCHC 33.8 g/dL (28.0-37.0); MCV 81.8 fL (80.0-100.0); MONOCYTES 7.9 %; MPV 7.8 fl. (7.2-11.1); NUCLEATED RBCS 0 /100WBC; PLATELET COUNT* 257 thou/uL (150-400); POLYS 59.4 %; POTASSIUM 4.5 mmol/L (3.5-5.1); RDW-CV 14.9 % (10.5-14.5); WBC 9.5 thou/uL (4.0-11.0)
[2021-05-04 16:30] LABS: ALBUMIN 3.9 g/dL (3.4-5.0); TOTAL BILIRUBIN 0.3 mg/dL (<0.1-1.0); TOTAL PROTEIN 7.1 g/dL (6.4-8.2)
[2021-05-04] MEDS ORDERED: VENTOLIN HFA 1818 GM INH (16:48)
[2021-05-04] MEDS ORDERED: ZPAK PO (16:48)
[2021-05-04] MEDS ORDERED: PREDNISONE 20 M20 M1 PO (16:48)
[2021-05-04 17:07] VITALS: BP 133/53
== END 2021-05-04 17:08 | disposition home or self-care (01) ==
LOC: M.ERS 15:30
PROVIDERS: Family Medicine
DX: J40 Bronchitis, not specified as acute or chronic (principal); Z20.822 Contact with and (suspected) exposure to COVID-19; E03.9 Hypothyroidism, unspecified; E78.00 Pure hypercholesterolemia, unspecified; K21.9 Gastro-esophageal reflux disease without esophagitis; I10 Essential (primary) hypertension; E11.9 Type 2 diabetes mellitus without complications; Z79.899 Other long term (current) drug therapy; Z98.51 Tubal ligation status; Z90.89 Acquired absence of other organs; Z87.891 Personal history of nicotine dependence; Z88.0 Allergy status to penicillin; Z88.1 Allergy status to other antibiotic agents; Z88.7 Allergy status to serum and vaccine